=== PATIENT | male | born 1955 | race Caucasian/White ===

== ENCOUNTER → 2019-06-30 08:26 | Outpatient (CLI) | payer BC, SELFPAY ==
[2019-06-30 09:40] LABS: Alanine Aminotransferase 31 IU/L (21-72); Albumin 4.4 g/dL (3.5-5.0); Albumin Globulin Ratio 1.6 (1.0-2.8); Alkaline Phosphatase 90 U/L (38-126); Aspartate Aminotransferase 31 IU/L (17-59); BUN Creatinine Ratio 17.8 (6-22); Bilirubin Total 0.7 mg/dL (0.2-1.3); Blood Urea Nitrogen 16 mg/dL (9-20); Calcium 9.2 mg/dL (8.4-10.2); Carbon Dioxide 24 mmol/L (22-32); Chloride 104 mmol/L (98-107); Cholesterol 167 mg/dL (140-199); Estimated Glomerular Filt Rate > 60.0 mL/min (>60); Globulin 2.8 g/dL (1.7-4.1); Glucose 95 mg/dL (80-110); HDL Cholesterol 46 mg/dL (40-60); HEMOLYSIS < 15 (0-50); LDL Cholesterol Calculated 96 mg/dL (<100); Potassium 4.7 mmol/L (3.4-5.1); Sodium 137 mmol/L (137-145); Total Protein 7.2 g/dL (6.3-8.2); Triglycerides 125 mg/dL (35-150)
[2019-06-30 10:10] LABS: Prostate Specific Antigen Scrn 0.519 ng/mL (0.1-4.0); Vitamin D 25 Hydroxy (D3) 40.6 ng/mL (30.0-100.0)
[2019-07-04 14:25] LABS: Varicella IgG Antibody < 135.00 Index (< 135.00)
== END ==
PROVIDERS: Visit Provider Student in an Organized Health Care Education/Training Program
DX: E55.9 Vitamin D deficiency, unspecified (principal); I25.10 Atherosclerotic heart disease of native coronary artery without angina pectoris; I10 Essential (primary) hypertension; Z12.5 Encounter for screening for malignant neoplasm of prostate; Z71.1 Person with feared health complaint in whom no diagnosis is made; Z79.899 Other long term (current) drug therapy
CPT/HCPCS: 36415; 80053; 80061; 82306; 86787; G0103

== ENCOUNTER → 2019-07-13 09:01 | Outpatient (CLI) | payer BC, SELFPAY ==
[2019-07-13 10:26] LABS: B Type Natriuretic Peptide 163 (<100)
== END ==
PROVIDERS: PCP Student in an Organized Health Care Education/Training Program; Visit Provider Internal Medicine Cardiovascular Disease
DX: R06.02 Shortness of breath (principal)
CPT/HCPCS: 36415; 83880

== ENCOUNTER → 2019-08-09 15:48 | Outpatient (CLI) | payer BC, SELFPAY ==
--- NOTE | 2019-08-09 | DI.ECHO.S_ITS ---
[facility]---------+ [facility] +---------+ : : [address] : : : : [id number] : : : : Phone: [phone]+ Echocardiogram Report + + :Name: ELIAN DIAZ Study Date: 08/09/2019 Height: 70 in : :[facility] Exam Location: [facility] Weight: 225 lb : : Gender: Male BSA: 2.2 m2 : :: 1955 Age: 64 yrs BP: 112/65 mmHg: :Reason For Study: SOB : : Performed By: Jose Sung : :Referring: DISHA GAMBLE : + + Interpretation Summary The left ventricle is normal in size. The ejection fraction is estimated to be 60-65%. The right ventricle is normal in size and function. Heavy posterior mitral annulus calcification. Mild anterior mitral annulus calcification. No significant mitral stenosis. There is mild to moderate mitral regurgitation. There is mild aortic regurgitation. The ascending aorta is mild-moderately enlarged (4.1 cm in diameter). There is aortic root sclerosis/calcification. The IVC is of normal diameter and collapses greater than 50% with a sniff. This suggests a low right atrial pressure of 3 mm Hg. Procedure: A two-dimensional transthoracic echocardiogram with color flow and Doppler was performed. The study quality was technically adequate. There is no prior echocardiogram noted for this patient. The patient was in normal sinus rhythm during the exam. The patient had occasional PVCs during the exam. The patient had a bundle branch block rhythm during the exam. Left Ventricle: The left ventricle is normal in size. There is normal left ventricular wall thickness. There is no thrombus. The ejection fraction is estimated to be 60-65%. There are no focal wall motion abnormalities. MV E/A: 0.94 Med Peak E' Jhon: 4.9 cm/sec E/E' med: 23.6. Right Ventricle: The right ventricle is normal in size and function. Atria: The left atrium is moderately dilated. Right atrial size is normal. A prominent eustachian valve is noted. The interatrial septum is intact with no evidence for an atrial septal defect. Mitral Valve: Heavy posterior mitral annulus calcification. Mild anterior mitral annulus calcification. No significant mitral stenosis. There is mild to moderate mitral regurgitation. Aortic Valve: The aortic valve is trileaflet. The aortic valve is mildly calcified. There is no aortic valve stenosis. There is mild aortic regurgitation. Tricuspid Valve: The tricuspid valve is normal. Pulmonary artery pressures cannot be estimated because of the lack of a measurable TR jet velocity. There is trace tricuspid regurgitation. Pulmonic Valve: The pulmonic valve is normal in structure and function. There is trace pulmonic regurgitation. Great Vessels: The aortic root is normal size. There is aortic root sclerosis/calcification. The ascending aorta is mild-moderately enlarged. The aortic arch is mildly enlarged. The pulmonary artery is normal size. The IVC is of normal diameter and collapses greater than 50% with a sniff. This suggests a low right atrial pressure of 3 mm Hg. Pericardium/ Pleura There is no pericardial effusion. There is no pleural effusion. MMode/2D Measurements & Calculations LVIDd: 5.7 cm LVOT diam: 2.5 cm LVIDs: 3.1 cm Ao root diam: 4.1 cm FS: 46.2 % Aortic Jxn: 3.6 cm EPSS: 0.39 cm asc Aorta Diam: 4.1 cm IVSd: 1.1 cm Ao Arch Diam (Prox Trans): 3.4 cm LVPWd: 0.97 cm LV rodriguez. diameter/BSA (cm/m^2): 2.6 LV sys. diameter/BSA (cm/m^2): 1.4 LA dimension: 4.5 cm RA long axis: 5.8 cm LA A2 area: 27.9 cm2 RA area: 19.5 cm2 LA A4 area: 27.5 cm2 RA vol: 55.8 ml LA length (vol): 6.4 cm RA : 25.4 ml/m2 LA vol: 102.4 ml IVC diam: 1.6 cm LA vol index: 46.7 ml/m2 Doppler Measurements & Calculations Ao V2 max: 145.3 cm/sec LVOT Max Jhon: 130.7 cm/sec Ao V2 mean: 112.8 cm/sec LV V1 max P.8 mmHg Ao max P.4 mmHg LV V1 VTI: 34.0 cm Ao mean P.2 mmHg PAZ(I,D): 4.7 cm2 Ao V2 VTI: 35.0 cm PAZ(V,D): 4.4 cm2 sev ratio: 0.97 PAZ indexed to BSA (cm^2/m^2): 2.1 AI P1/2t: 939.8 msec AI dec slope: 130.9 cm/sec2 MV E max jhon: 114.5 cm/sec PA V2 max: 71.3 cm/sec MV A max jhon: 122.0 cm/sec PA V2 mean: 54.1 cm/sec MV E/A: 0.94 PA mean P.2 mmHg Med Peak E' Jhon: 4.9 cm/sec PA pr(Accel): 14.1 mmHg E/E' med: 23.6 PA Accel Time: 0.14 sec Lat Peak E' Jhon: 6.4 cm/sec E/E' lat: 17.9 E/e' average: 20.7 MV dec time: 0.30 sec SV(LVOT): 164.8 ml Reading Physician:05:30 PM
== END ==
PROVIDERS: PCP Student in an Organized Health Care Education/Training Program; Visit Provider Internal Medicine Cardiovascular Disease
DX: I08.0 Rheumatic disorders of both mitral and aortic valves (principal); R06.02 Shortness of breath; I25.118 Atherosclerotic heart disease of native coronary artery with other forms of angina pectoris; I77.89 Other specified disorders of arteries and arterioles
CPT/HCPCS: 93306

== ENCOUNTER → 2019-08-21 08:15 | Outpatient (CLI) | payer BC, SELFPAY ==
--- NOTE | 2019-08-21 | DI.NM.S_ITS ---
PROCEDURE: NM TOMY PERF SPECT R&S PHARM Rest and pharmacological stress myocardial perfusion SPECT with gated imaging and ejection fraction RADIOPHARMACEUTICAL: 24.2 mCi Tc-99m tetrafosmin IV at rest and 26.7 mCi Tc-99m tetrafosmin IV at peak effect of pharmacological stress. [id number] was performed. INDICATIONS: Shortness of breath TECHNIQUE: Radiopharmaceutical was injected at peak stress test, and also at rest. SPECT images were obtained. SPECT myocardial perfusion images were displayed in short axis, horizontal long axis, and vertical long axis views. Gated images were reviewed using Deepclass software. COMPARISON: None. CARDIAC STRESS: A pharmacologic stress test was performed under the supervision of an attending staff, using an infusion of Lexiscan . Hemodynamic data: There is normal blood pressure and heart rate response to pharmacologic stress. Symptoms: The patient denied anginal chest pain. Aminophylline: Not given. EKG: LBBB at baseline. No diagnostic changes of ischemia; no ectopy. FINDINGS: Raw data: There is good myocardial uptake of radiotracer. No significant motion artifacts. Ytzk-mq-[id number] ratio is 0.4 (normal is less than 0.38 for tetrafosmin tracer). Left ventricle function: Gated images demonstrate normal left ventricular wall thickening. No segmental wall motion abnormalities. No transient ischemic dilation; TID is 1.41 (normal less than 1.3). Left ventricle resting end diastolic volume is 105 mL. Left ventricle stress ejection fraction is 77% ; normal range is above 45%. Myocardial perfusion: There is a small, mild, fixed inferoapical defect on rest, stress supine and stress prone imaging, consistent with a small prior infarct. There is a moderate-size, mild defect of the apical septal, mid anterseptal and mid inferoseptal on rest and supine stress which completely resolves on prone imaging. Otherwise normal distribution of activity in the left ventricular myocardium. No other fixed or reversible perfusion defects. IMPRESSION: -Small, fixed inferoapical defect, consistent with prior infarct. -No evidence of ischemia. -The septal defects completely resolve on prone imaging, consistent with artifact. -Slightly elevated TID without visual evidence of transient dilatation could be related to dyssynchrony with left bundle branch block. Clinical correlation is recommended. -Overall this is a low risk study. Dictated by: Cristian Carty M.D. on 08/22/2019 at 16:50 Approved by: Cristian Carty M.D. on 08/22/2019 at 17:01
--- NOTE | 2019-08-21 09:17 | PM.TREADMILL ---
Cardiac Stress Test Report Referral & Results Date Patient Seen: 08/21/19 Requesting provider: Alison Kim Indication: Left bundle branch block, coronary artery disease Rest ECG: Left bundle branch block Procedure Note: After both written and verbal informed consent the patient had an IV started by the diagnostic imaging RN, and then was hooked up to the treadmill monitoring system. The Lexiscan material, and then the Cardiolite tracer, were administered sequentially. An additional 3 min was spent monitoring the patient while supine on the gurney. The patient had a normal response to all infused materials. Impression: Normal response as above. Please see perfusion imaging report for details regarding possible ischemia Please note: Actual ECG tracings can be found in the PACS system.
== END ==
PROVIDERS: PCP Student in an Organized Health Care Education/Training Program; Visit Provider Internal Medicine Cardiovascular Disease
DX: I25.118 Atherosclerotic heart disease of native coronary artery with other forms of angina pectoris (principal); I44.7 Left bundle-branch block, unspecified; R06.02 Shortness of breath
CPT/HCPCS: 78452; 93016; 93017; 93018; A9502; J2785

== ENCOUNTER → 2020-04-16 08:08 | Outpatient (CLI) | payer BC, SELFPAY ==
[2020-04-16 12:57] LABS: Cholesterol 173 mg/dL (140-199); HDL Cholesterol 51 mg/dL (40-60); LDL Cholesterol Calculated 88 mg/dL (<100); Triglycerides 171 mg/dL (35-150)
== END ==
PROVIDERS: PCP Student in an Organized Health Care Education/Training Program; Referring Provider Internal Medicine Cardiovascular Disease; Visit Provider Internal Medicine Cardiovascular Disease
DX: E78.5 Hyperlipidemia, unspecified (principal)
CPT/HCPCS: 36415; 80061

== ENCOUNTER → 2020-05-07 10:05 | Outpatient (CLI) | payer BC, SELFPAY ==
[2020-05-08 14:20] LABS: COVID19 Sendout Not Detected (Not Detect)
== END ==
PROVIDERS: PCP Student in an Organized Health Care Education/Training Program; Visit Provider Registered Nurse
DX: Z01.812 Encounter for preprocedural laboratory examination (principal)
CPT/HCPCS: 87635

== ENCOUNTER → 2020-05-10 08:49 | Outpatient (CLI) | payer BC, SELFPAY ==
--- NOTE | 2020-05-15 09:44 | PM.PFT.1 ---
Pulmonary Function Test Referral & Results Date Patient Seen: 05/10/20 Requesting provider: Alison Kim Results: The spirometry demonstrates an FVC of 4.33 L which is 93% of predicted. The FEV1 was measured at 2.84 L which is 81% of predicted. The FEV1/FVC ratio was 65 which is 87% of predicted. Following the administration of bronchodilator there was a 19% improvement in FEV1 and a 95% improvement in FEF 25-75%. Lung volumes show an SVC of 4.44 L which is 94% of predicted. The diffusing capacity was measured at 24.56 which is 75% of predicted. The maximum voluntary ventilation was normal Interpretation: This study demonstrates perhaps very mild obstructive lung disease based on slight reduction in FEV1 and shape a flow volume loop. There is also evidence of benefit following bronchodilator based on improvement in FEV1 and more importantly improvement in FEF 25-75% which suggest small airway flow was improved Lung volumes appear to be normal Diffusing capacity is minimally reduced unless patient is anemic
== END ==
PROVIDERS: PCP Student in an Organized Health Care Education/Training Program; Referring Provider Internal Medicine Cardiovascular Disease; Visit Provider Internal Medicine Cardiovascular Disease
DX: R06.02 Shortness of breath (principal); J98.8 Other specified respiratory disorders
CPT/HCPCS: 94060; 94726; 94729

== ENCOUNTER → 2020-07-11 08:50 | Outpatient (CLI) | payer BC, SELFPAY ==
[2020-07-11 10:30] LABS: Alanine Aminotransferase 20 IU/L (<50); Albumin Globulin Ratio 1.6 (1.0-2.8); Alkaline Phosphatase 94 U/L (38-126); Aspartate Aminotransferase 29 IU/L (17-59); Bilirubin Total 0.6 mg/dL (0.2-1.3); Bilirubin Unconjugated 0.5 mg/dL (0.0-1.1); Cholesterol 112 mg/dL (140-199); Globulin 2.5 g/dL (1.7-4.1); HDL Cholesterol 66 mg/dL (40-60); HEMOLYSIS < 15 (0-50); LDL Cholesterol Calculated 32 mg/dL (<100); Total Protein 6.5 g/dL (6.3-8.2); Triglycerides 69 mg/dL (35-150)
== END ==
PROVIDERS: PCP Student in an Organized Health Care Education/Training Program; Referring Provider Nurse Practitioner; Visit Provider Nurse Practitioner
DX: I25.118 Atherosclerotic heart disease of native coronary artery with other forms of angina pectoris (principal); I10 Essential (primary) hypertension; E78.5 Hyperlipidemia, unspecified; I44.7 Left bundle-branch block, unspecified
CPT/HCPCS: 36415; 80061; 80076

== ENCOUNTER 2020-11-10 19:43 | Observation (INO) | payer BC, SELFPAY ==
[2020-11-10] VITALS (20 sets, daily range): BP systolic 109–167; BP diastolic 69–97; PULSE 74–150; RESP 20–41; TEMP 36.6–36.7; O2SAT 83–96; BMI 32.3; BMI 32.2
--- NOTE | 2020-11-10 19:45 | DI.RAD.S_ITS ---
PROCEDURE: XR CHEST 1V INDICATIONS: chest pain TECHNIQUE: One view of the chest was acquired. COMPARISON: None. FINDINGS: Surgical changes and devices: None. Lungs and pleura: There is mild pulmonary vascular congestion. Increased interstitial reticular markings are noted. No focal infiltrate. No pleural effusions or pneumothorax. Mediastinum: Mediastinal contours appear normal. Heart size is enlarged. Bones and chest wall: No suspicious bony lesions. Overlying soft tissues appear unremarkable. IMPRESSION: Cardiomegaly and mild congestion. Increased interstitial reticular markings may represent pulmonary edema versus chronic lung parenchymal disease. No focal infiltrate. No pleural effusion or pneumothorax. Dictated by: Billy Salvador M.D. on 11/10/2020 at 21:02 Approved by: Billy Salvador M.D. on 11/10/2020 at 21:03
[2020-11-10] MEDS: SODIUM CHLORIDE 0.9% 500 ML 1000 ML IV (19:55)
[2020-11-10 19:59] LABS: Add Manual Diff / Slide Review NO; Basophils Absolute Auto 100 /uL (0-100); Basophils Percent Auto 1.1 % (0-2); Eosinophils Absolute Auto 700 /uL (0-450); Eosinophils Percent Auto 7.3 % (2-4); Hematocrit 46.4 % (41-53); Hemoglobin 16.2 g/dL (13.5-17.5); Lymphocytes Absolute Auto 2900 /uL (1100-4500); Lymphocytes Percent Auto 31.6 % (25-40); Mean Corpuscular HGB Conc 34.8 % (30-36); Mean Corpuscular Hemoglobin 34.9 PG (26-34); Mean Corpuscular Volume 100.3 fL (80-100); Monocytes Absolute Auto 800 /uL (0-900); Monocytes Percent Auto 8.4 % (3-14); Neutrophils Absolute Auto 4700 /uL (1500-7000); Neutrophils Percent Auto 51.6 % (50-75); Platelet Count 241 X10^3/uL (150-400); Red Blood Cell Count 4.62 X10^6/uL (4.5-5.9); Red Cell Distribution Width 12.9 % (11.6-14.8); White Blood Cell Count 9.1 X10^3/uL (4.5-11.0)
[2020-11-10 20:05] LABS: INR 0.9 (0.9-1.3); Prothrombin Time 10.3 SECONDS (10.1-12.7)
[2020-11-10] MEDS: propofoL 200 MG/20 ML VIAL 100 MG IV (20:06)
[2020-11-10 20:07] LABS: PTT Partial Thromboplastin Tim 31 SECONDS (26.4-36.2)
[2020-11-10 20:09] LABS: Alanine Aminotransferase 43 IU/L (<50); Albumin 4.7 g/dL (3.5-5.0); Albumin Globulin Ratio 1.4 (1.0-2.8); Alkaline Phosphatase 122 U/L (38-126); Aspartate Aminotransferase 41 IU/L (17-59); BUN Creatinine Ratio 12.1 (6-22); Bilirubin Total 0.5 mg/dL (0.2-1.3); Blood Urea Nitrogen 18 mg/dL (9-20); Calcium 9.9 mg/dL (8.4-10.2); Carbon Dioxide 25 mmol/L (22-32); Chloride 101 mmol/L (98-107); Creatine Kinase 67 U/L (55-170); Estimated Glomerular Filt Rate 47.5 mL/min (>60); Globulin 3.3 g/dL (1.7-4.1); Glucose 152 mg/dL (80-110); HEMOLYSIS < 15 (0-50); Lipase 129 U/L (23-300); Potassium 3.8 mmol/L (3.4-5.1); Sodium 136 mmol/L (137-145)
--- NOTE | 2020-11-10 20:10 | ED.CHESTPAIN ---
HPI - Chest Pain General Chief Complaint: Chest Pain Stated Complaint: tightness in chest, SOB, elevated HR Time Seen by Provider: 11/10/20 19:45 Source: patient and family Mode of arrival: Ambulatory Limitations: no limitations History of Present Illness HPI narrative: 65-year-old male former smoker with history of coronary artery disease and AFib (no anticoagulation) presents with a chief complaint of a sudden onset anterior chest pressure and shortness of breath that started about 2 hours prior to arrival. Additionally, he complains of a rapid and irregular heart rhythm and states he feels like prior episodes of atrial fibrillation. His pressure is heavy, squeezing and in his anterior chest. He denies provocation, palliation or radiation of his pain. He tried taking some nitro at home which did not help. Additionally he is significantly short of breath with even minimal exertion, this started with his chest pain. He had an NSTEMI with subsequent catheterization and stent a few years ago. He was taken off his clopidogrel relatively recently as he was thought to be far enough removed from his intervention to no longer needed. Additionally, he has been in contact with his primary applications trainer (Judy) to discuss increasing shortness of breath with exertion and the presence of a murmur. Apparently he is being scheduled for an outpatient echocardiogram. MD complaint: chest pain Onset (ago): hour(s) Duration: constant Onset: during rest Pain location: substernal Severity: moderate Quality: tightness, aching and heaviness Pain radiation: none Relieving factors: nothing Exacerbating factors: nothing Associated symptoms: dyspnea Treatments prior to arrival chest pain: nitroglycerin Related Data Home Medications Medication Instructions Recorded Confirmed aspirin 81 mg tablet,delayed 81 mg PO DAILY 06/21/19 11/10/20 release atorvastatin 80 mg tablet 80 mg PO BEDTIME 06/21/19 11/10/20 clopidogrel 75 mg tablet 75 mg PO DAILY 06/21/19 06/21/19 ezetimibe 10 mg tablet 10 mg PO DAILY 06/21/19 06/21/19 irbesartan 300 mg tablet 300 mg PO DAILY 06/21/19 11/10/20 metoprolol tartrate 50 mg tablet 50 mg PO BID 06/21/19 11/10/20 pantoprazole 40 mg tablet,delayed 40 mg PO DAILY PRN 06/21/19 06/21/19 release isosorbide mononitrate 30 mg PO DAILY 11/10/20 11/10/20 Allergies Allergy/AdvReac Type Severity Reaction Status Date / Time No Known Drug Allergies Allergy Verified 06/21/19 14:35 Review of Systems Constitutional Constitutional: Denies chills, Denies fatigue, Denies fever(s), Denies frequent falls, Denies lethargy and Denies weakness Eyes Eyes: Denies change in vision, Denies eye discharge, Denies irritation and Denies loss of vision ENT Ears, Nose, Mouth, and Throat: Denies change in voice, Denies dizziness, Denies neck pain, Denies sore throat and Denies throat swelling Cardiovascular Cardiovascular: Reports chest pain, Reports irregular heart rhythm, Denies lightheadedness, Reports palpitations, Reports dyspnea, Reports dyspnea on exertion and Denies orthopnea Respiratory Respiratory: Denies cough, Reports dyspnea, Reports dyspnea on exertion and Denies wheezing Gastrointestinal Gastrointestinal: Denies abdominal pain, Denies change in bowel habits, Denies diarrhea, Denies nausea and Denies vomiting Musculoskeletal Musculoskeletal: Denies neck pain and Denies numbness Integumentary/Breasts Skin/Breast: Denies pruritus, Denies erythema, Denies rash and Denies wounds Neurologic Neurologic: Denies behavioral changes, Denies confusion, Denies dizziness, Denies frequent falls, Denies loss of vision, Denies numbness and Denies weakness Psychiatric Psychiatric: Denies anxiety, Denies behavioral changes, Denies confusion, Denies depression, Denies homicidal ideation and Denies suicidal ideation Endocrine Endocrine: Denies fatigue, Denies flushing and Reports palpitations Hematologic/Lymphatic Hematologic/Lymphatic: Denies easy bruising Allergic/Immunologic Allergic/Immunologic: Denies urticaria, Denies throat swelling and Denies wheezing Patient History Medical History Atrial fibrillation (~01/2018) Chronic back pain (~2014) Gonorrhea (~2011) Measles Surgical History Anesthesia History of angioplasty (~01/2018) History of hip replacement (~2016) Family History Father Dementia Social History household members: spouse Smoking Status: Former smoker alcohol intake: current Smoking Status: Former smoker Exam Narrative Exam Narrative: GENERAL: [65] year old patient appears stated age. Obviously significantly ill, clutching his chest and visibly short of breath. HEAD: Atraumatic. Normocephalic. EYES: Pupils equal round and reactive. Extraocular motions intact. No scleral icterus. No injection or drainage. ENT: Nose without bleeding, purulent drainage. Throat without erythema, tonsillar hypertrophy or exudate. Airway patent. NECK: Trachea midline. Non tender CARDIOVASCULAR: Tachycardic and irregular RESPIRATORY: Rapid shallow breathing with bibasilar crackles GASTROINTESTINAL: Abdomen soft, non-tender, nondistended. EXTREMITIES: No edema or joint tenderness. BACK: Nontender without deformity or crepitance. No flank tenderness. NEURO: AOx3. SKIN: No rash or erythema of visible areas Initial Vital Signs Initial Vital Signs: Vital Signs Temperature 98.0 F 11/10/20 19:50 Pulse Rate 145 H 11/10/20 19:50 Respiratory Rate 31 H 11/10/20 19:50 Blood Pressure 145/87 H 11/10/20 19:50 Pulse Oximetry 90 L 11/10/20 19:50 Procedures Cardioversion Consent Signed: Yes Indication: Unstable rapid Afib Stability: Unstable Number of attempts (shocks): 1 Joules used: 150 Cardiac rhythm post-cardioversion: NSR Procedural Sedation Consent signed: Yes Time out performed: Yes Indication: cardioversion ASA Class: III Mallampati Airway Classification: Class III Preparation: cafeteria monitor applied, pulse oximeter, capnometry used, supplemental O2 applied, suction/airway equipment at bedside and IV secured IV Propofol dose (mg): 100 Intraservice time/total sedation time (min): 10 ED Sedation Level: Moderate (Concious) Patient Tolerated Procedure: Well Complications: Respiratory Depression-Repositioning Required Interventions: Airway repositioned and Oxygen applied Course Course Course Narrative: Early cardioversion due to unstable nature of the patient's presentation given his chest pain and significant shortness of breath. Furthermore, symptoms have only been present for 2 hours making him appropriate and safe for cardioversion Orders Ordered: ED Orders 11/10/20 19:45 XR chest 1V Stat EKG-12 Lead Stat 11/10/20 19:51 Complete Blood Count AUTO DIFF Stat Comprehensive Metabolic Panel Stat Lipase Stat Partial Thromboplastin Time Stat Prothrombin Time INR Stat Troponin & CK Cardiac Panel Stat 11/10/20 20:58 EKG-12 Lead Routine Acetaminophen (Acetaminophen 325 Mg Tablet) 650 mg PO Q6HR PRN PRN Reason: Fever/Mild Pain (1-3) Aspirin (Aspirin Ec 81 Mg Tablet) 81 mg PO DAILY VENITA Atorvastatin Calcium (Atorvastatin 20 Mg Tablet) 80 mg PO BEDTIME VENITA Docusate Sodium (Docusate 100 Mg Capsule) 100 mg PO BID PRN PRN Reason: constipation Irbesartan (Irbesartan 150 Mg Tablet) 300 mg PO DAILY VENITA Isosorbide Mononitrate (Isosorbide Mononitrate Er 30 Mg Tablet) 30 mg PO DAILY VENITA Metoprolol Tartrate (Metoprolol Ir 50 Mg Tablet) 50 mg PO BID VENITA Naloxone HCl (Naloxone 0.4 Mg/Ml Vial) 0.2 mg IV Q2MIN PRN PRN Reason: Opiate Reversal Ondansetron HCl (Ondansetron 4 Mg Odt) 4 mg PO Q8HR PRN PRN Reason: Nausea And Vomiting Sennosides (Sennosides 8.6 Mg Tablet) 17.2 mg PO BEDTIME PRN PRN Reason: constipation Discontinued Medications Apixaban (Apixaban 5 Mg Tablet) 5 mg PO NOW ONE Stop: 11/10/20 21:48 Last Admin: 11/10/20 22:45 Dose: 5 mg Documented by: TAMEKA Sodium Chloride (Normal Saline 0.9%) 500 mls @ 1,000 mls/hr IV BOLUS ONE Stop: 11/10/20 21:02 Last Infusion: 11/10/20 20:43 Dose: 0 mls/hr Documented by: Admin: 11/10/20 19:55 Dose: 1,000 mls/hr Documented by: JESSI Propofol (Propofol 200 Mg/20 Ml Vial) 100 mg IV NOW ONE Stop: 11/10/20 20:09 Last Admin: 11/10/20 20:06 Dose: 100 mg Documented by: JESSI Reevaluation(s) Reevaluation #1: complete resolution of symptoms after cardioversion Consultations Consultation #1: call to Dr. Mancini (Cardio) to discuss case given recent visit to Dr. Kim and request for outpatient echo. He requests anticoagulation, admission for monitoring and echo. Change Metoprolol Succinate 50mg PO BID to tartrate for longer effect. Will relay note to Dr. Kim for in house consultation tomorrow Consultation #2: hospitalist happy to accept. Vital Signs Vital signs: Vital Signs - 8 hr 11/10/20 19:50 11/10/20 19:59 11/10/20 20:00 Temperature 98.0 F Pulse Rate 145 H 148 H 148 H Respiratory Rate 31 H 41 H 37 H Blood Pressure 145/87 H Pulse Oximetry 90 L 95 96 11/10/20 20:01 11/10/20 20:06 11/10/20 20:10 Temperature Pulse Rate 150 H 83 80 Respiratory Rate 33 H 30 H 36 H Blood Pressure 167/90 H 132/73 109/69 Pulse Oximetry 96 83 L 94 11/10/20 20:15 11/10/20 20:20 11/10/20 20:25 Temperature Pulse Rate 80 79 77 Respiratory Rate 27 H 31 H 26 H Blood Pressure 131/79 146/80 H 134/83 Pulse Oximetry 94 94 93 11/10/20 20:30 11/10/20 20:34 11/10/20 20:35 Temperature Pulse Rate 77 78 77 Respiratory Rate 37 H 37 H 33 H Blood Pressure 129/83 130/82 Pulse Oximetry 96 95 95 11/10/20 20:40 11/10/20 20:45 11/10/20 21:00 Temperature Pulse Rate 79 78 83 Respiratory Rate 30 H 28 H 21 Blood Pressure 138/87 130/75 136/84 Pulse Oximetry 95 96 95 11/10/20 21:30 11/10/20 22:00 Temperature Pulse Rate 74 74 Respiratory Rate 20 Blood Pressure 134/82 137/85 Pulse Oximetry 96 96 MDM - Chest Pain Lab Data Result diagrams: 11/10/20 19:51 11/10/20 19:51 Labs: Lab Results 11/10/20 11/10/20 11/10/20 Range/Units 19:51 19:51 19:51 WBC 9.1 (4.5-11.0) X10^3/uL RBC 4.62 (4.5-5.9) X10^6/uL Hgb 16.2 (13.5-17.5) g/dL Hct 46.4 (41-53) % MCV 100.3 H (80-100) fL MCH 34.9 H (26-34) PG MCHC 34.8 (30-36) % RDW 12.9 (11.6-14.8) % Plt Count 241 (150-400) X10^3/uL Neut % (Auto) 51.6 (50-75) % Lymph % (Auto) 31.6 (25-40) % [place] % (Auto) 8.4 (3-14) % Eos % (Auto) 7.3 H (2-4) % Baso % (Auto) 1.1 (0-2) % Neut # (Auto) 4700 (6711-7240) /uL Lymph # (Auto) 2900 (2624-8695) /uL [place] # (Auto) 800 (0-900) /uL Eos # (Auto) 700 H (0-450) /uL Baso # (Auto) 100 (0-100) /uL PT 10.3 (10.1-12.7) SECONDS INR 0.9 (0.9-1.3) APTT 31 (26.4-36.2) SECONDS Sodium 136 L (137-145) mmol/L Potassium 3.8 (3.4-5.1) mmol/L Chloride 101 (98-107) mmol/L Carbon Dioxide 25 (22-32) mmol/L BUN 18 (9-20) mg/dL Creatinine 1.49 H (0.66-1.25) mg/dL Estimated GFR 47.5 L (>60) mL/min BUN/Creatinine Ratio 12.1 (6-22) Glucose 152 H (80-110) mg/dL Calcium 9.9 (8.4-10.2) mg/dL Total Bilirubin 0.5 (0.2-1.3) mg/dL AST 41 (17-59) IU/L ALT 43 (<50) IU/L Alkaline Phosphatase 122 (38-126) U/L Total Creatine Kinase 67 (55-170) U/L CK-MB (CK-2) TNP CK-MB (CK-2) Rel Index TNP Troponin I < 0.012 (0.01-0.034) ng/mL NT-Pro-B Natriuret Pep (<125) pg/mL Total Protein 8.0 (6.3-8.2) g/dL Albumin 4.7 (3.5-5.0) g/dL Globulin 3.3 (1.7-4.1) g/dL Albumin/Globulin Ratio 1.4 (1.0-2.8) Lipase 129 (23-300) U/L 12/20/20 Range/Units 19:51 WBC (4.5-11.0) X10^3/uL RBC (4.5-5.9) X10^6/uL Hgb (13.5-17.5) g/dL Hct (41-53) % MCV (80-100) fL MCH (26-34) PG MCHC (30-36) % RDW (11.6-14.8) % Plt Count (150-400) X10^3/uL Neut % (Auto) (50-75) % Lymph % (Auto) (25-40) % [place] % (Auto) (3-14) % Eos % (Auto) (2-4) % Baso % (Auto) (0-2) % Neut # (Auto) (9382-6989) /uL Lymph # (Auto) (5117-9155) /uL [place] # (Auto) (0-900) /uL Eos # (Auto) (0-450) /uL Baso # (Auto) (0-100) /uL PT (10.1-12.7) SECONDS INR (0.9-1.3) APTT (26.4-36.2) SECONDS Sodium (137-145) mmol/L Potassium (3.4-5.1) mmol/L Chloride (98-107) mmol/L Carbon Dioxide (22-32) mmol/L BUN (9-20) mg/dL Creatinine (0.66-1.25) mg/dL Estimated GFR (>60) mL/min BUN/Creatinine Ratio (6-22) Glucose (80-110) mg/dL Calcium (8.4-10.2) mg/dL Total Bilirubin (0.2-1.3) mg/dL AST (17-59) IU/L ALT (<50) IU/L Alkaline Phosphatase (38-126) U/L Total Creatine Kinase (55-170) U/L CK-MB (CK-2) CK-MB (CK-2) Rel Index Troponin I (0.01-0.034) ng/mL NT-Pro-B Natriuret Pep 212 H (<125) pg/mL Total Protein (6.3-8.2) g/dL Albumin (3.5-5.0) g/dL Globulin (1.7-4.1) g/dL Albumin/Globulin Ratio (1.0-2.8) Lipase (23-300) U/L Discharge Plan Departure Patient Disposition: Admitted as Observation Clinical Impression: Atrial fibrillation Qualifiers: Atrial fibrillation type: paroxysmal Qualified Code(s): I48.0 - Paroxysmal atrial fibrillation Chest pain Qualifiers: Chest pain type: other chest pain Qualified Code(s): R07.89 - Other chest pain Admit Date/Time: 11/10/20 22:15 Admit Provider: Alexandra Cedeño
[2020-11-10 20:21] LABS: Troponin I < 0.012 ng/mL (0.01-0.034)
[2020-11-10] MEDS: APIXABAN 5 MG TABLET PO (22:45)
[2020-11-10 22:49] LABS: COVID19 -Nasal RAPID Negative (Negative)
--- NOTE | 2020-11-11 00:01 | DI.ECHO.S_ITS ---
[facility] +---------+ : : [address] : : : : [id number] : : : : Phone: [phone]+ Echocardiogram Report + + :Name: ELIAN DIAZ Study Date: 11/11/2020 Height: 70 in : :[facility] Weight: 225 lb : : Gender: Male BSA: 2.2 m2 : :: 1955 Age: 65 yrs BP: 132/82 mmHg: :Reason For Study: ATRIAL FIBRILLATION : :Ordering Physician: : :MARCIA WORLEY MECHANICAL ENGINEER-BC Performed By: Eda Gimenez : :Referring: MARCIA WORLEY : + + Interpretation Summary The patient was in sinus rhythm with heart rates between 67-77 bpm during the exam. The left ventricle is normal in size. Left ventricular wall thickness is mild-moderately increased. The ejection fraction is estimated to be 60-65%. There has been no significant change in LVEF since the previous exam. The right ventricle is normal in size and function. There is reduced mobility of the posterior mitral valve leaflet with severe MAC of posterior mitral annulus. Mild calcification of anterior mitral annulus. No significant mitral stenosis. Mild mitral stenosis. There is mild to moderate mitral regurgitation. Compared to the prior echo study, there has been no change in the severity of mitral regurgitation. There is mild aortic regurgitation. Compared to the prior echo study, there has been no change in the severity of aortic regurgitation. The aortic root is mildly dilated. There is aortic root sclerosis/calcification. The ascending aorta is moderately enlarged. 4.7 cm in diameter. In the previous study, it was 4.1 cm. The aortic arch is mildly enlarged. Mild atherosclerotic plaque(s) in the aortic arch. Procedure: A two-dimensional transthoracic echocardiogram with color flow and Doppler was performed. The study quality was technically adequate. Comparison is made with the echocardiogram of 08/09/2019. The patient was in sinus rhythm with heart rates between 67-77 bpm during the exam. Left Ventricle: The left ventricle is normal in size. Left ventricular wall thickness is mild-moderately increased. A false chord is noted (normal variant). The ejection fraction is estimated to be 60-65%. There has been no significant change since the previous exam. There are no focal wall motion abnormalities. MV E/A: 0.94 Med Peak E' Jhon: 7.7 cm/sec E/E' med: 18.8. Right Ventricle: The right ventricle is normal in size and function. Atria: The left atrium is severely dilated. The left atrium has mildly increased in size since the prior echo exam. Right atrial size is normal. A prominent eustachian valve is noted. There is no Doppler evidence for an interatrial shunt. Mitral Valve: There is reduced mobility of the posterior mitral valve leaflet with severe MAC of posterior mitral annulus. Mild calcification of anterior mitral annulus. No significant mitral stenosis. Mild mitral stenosis. There is mild mitral stenosis. The mitral valve mean gradient is 5.6 mmHg. There is mild to moderate mitral regurgitation. Compared to the prior echo study, there has been no change in the severity of mitral regurgitation. Aortic Valve: The aortic valve is mildly calcified. The aortic valve is trileaflet. There is discrete nodular thickening of the non- coronary cusp. There is no aortic valve stenosis. There is mild aortic regurgitation. Compared to the prior echo study, there has been no change in the severity of aortic regurgitation. Tricuspid Valve: The tricuspid valve is normal in structure and function. There is trace tricuspid regurgitation. Pulmonary artery pressures cannot be estimated because of the lack of a measurable TR jet velocity but the IVC suggests a CVP of around 3 mmHg. Pulmonic Valve: The pulmonic valve is not well seen, but is grossly normal. There is no pulmonic valvular regurgitation. Great Vessels: The aortic root is mildly dilated. There is aortic root sclerosis/calcification. The ascending aorta is moderately enlarged. Mild atherosclerotic plaque(s) in the aortic arch. The aortic arch is mildly enlarged. The IVC is of normal diameter and collapses greater than 50% with a sniff. This suggests a low right atrial pressure of 3 mm Hg. Pericardium/ Pleura There is no pericardial effusion. There is no pleural effusion. MMode/2D Measurements & Calculations LVIDd: 4.8 cm LVOT diam: 2.0 cm LVIDs: 3.1 cm Ao root diam: 4.4 cm FS: 36.0 % asc Aorta Diam: 4.7 cm IVSd: 1.5 cm Ao Arch Diam (Prox Trans): 3.6 cm LVPWd: 1.1 cm LV rodriguez. diameter/BSA (cm/m^2): 2.2 LV sys. diameter/BSA (cm/m^2): 1.4 LA A2 area: 30.2 cm2 RA long axis: 5.6 cm LA A4 area: 26.1 cm2 RA area: 17.5 cm2 LA length (vol): 6.3 cm RA vol: 47.0 ml LA vol: 106.8 ml RA : 21.4 ml/m2 LA vol index: 48.7 ml/m2 IVC diam: 1.3 cm RVD1 (basal): 3.3 cm TAPSE: 2.0 cm Doppler Measurements & Calculations Ao V2 max: 154.6 cm/sec LVOT Max Jhon: 149.4 cm/sec Ao V2 mean: 116.5 cm/sec LV V1 max P.9 mmHg Ao max P.6 mmHg LV V1 VTI: 39.3 cm Ao mean P.9 mmHg PAZ(I,D): 3.6 cm2 Ao V2 VTI: 34.6 cm PAZ(V,D): 3.0 cm2 sev ratio: 1.1 PAZ indexed to BSA (cm^2/m^2): 1.6 MV E max jhon: 145.1 cm/sec PA V2 max: 71.2 cm/sec MV A max jhon: 154.8 cm/sec PA V2 mean: 47.7 cm/sec MV E/A: 0.94 PA mean P.0 mmHg Med Peak E' Jhon: 7.7 cm/sec PA pr(Accel): 19.1 mmHg E/E' med: 18.8 Lat Peak E' Jhon: 7.4 cm/sec E/E' lat: 19.6 E/e' average: 19.2 MV dec time: 0.33 sec MVA(VTI): 2.3 cm2 MV V2 mean: 111.7 cm/sec SV(LVOT): 123.2 ml MV mean P.6 mmHg MV V2 VTI: 54.2 cm Reading Physician:10:48 AM
[2020-11-11 00:23] LABS: NT-proBNP (BNP-Adult 18+) 212 pg/mL (<125)
--- NOTE | 2020-11-11 02:58 | PC.NURSE ---
Addendum entered by Kym Casas R.N. 11/11/20 06:52: 0648 Lab calls to report CRITICAL VALUE troponin 0.435. Repeated back. Immediately called Judi Cedeño NP, who gives no new orders at this time. Checked on patient following phone call; he is asymptomatic. Denies chest pain, denies SOB. Coordinator, Andra Lemon, notified. Awaiting further instructions. Addendum entered by Kym Casas R.N. 11/11/20 05:09: 0505 Patient safety check. No complaints of chest pain, and neither through the shift. Telemetry has been showing NSR with a heart rate in the 70s. No s/sx of distress. Original Note: 2335 Patient arrived on unit in stable condition, transferred from ED. He is alert and oriented x4. Denies chest pain. C/O mild wheezing of lungs. Right lower lobe has expiratory wheezing on assessment. No edema seen in extremities. He has a left AC PIV that is saline-locked. He is on room air. No s/sx of distress. Oriented patient to unit, instructed to call using call-light when needing to use restroom or for assistance.
[2020-11-11 05:13] VITALS: BP 120/81; PULSE 68; RESP 17; TEMP 37.1; O2SAT 97
[2020-11-11 05:51] LABS: Alanine Aminotransferase 31 IU/L (<50); Albumin 3.5 g/dL (3.5-5.0); Albumin Globulin Ratio 1.3 (1.0-2.8); Alkaline Phosphatase 75 U/L (38-126); Aspartate Aminotransferase 32 IU/L (17-59); BUN Creatinine Ratio 14.3 (6-22); Bilirubin Total 0.6 mg/dL (0.2-1.3); Blood Urea Nitrogen 16 mg/dL (9-20); Calcium 8.8 mg/dL (8.4-10.2); Carbon Dioxide 26 mmol/L (22-32); Chloride 108 mmol/L (98-107); Estimated Glomerular Filt Rate > 60.0 mL/min (>60); Globulin 2.6 g/dL (1.7-4.1); Glucose 102 mg/dL (80-110); HEMOLYSIS < 15 (0-50); Sodium 135 mmol/L (137-145); Total Protein 6.1 g/dL (6.3-8.2)
--- NOTE | 2020-11-11 05:52 | P.HP_ITS ---
History of Present Illness History of Present Illness Date Patient Seen: 11/10/20 Time Patient Seen: 23:35 Chief complaint: tightness in chest, SOB, elevated HR Narrative: Patient is a 65-year-old male Antelmo Watkins, who presented to the emergency room with a chief complaint of a sudden onset anterior chest pressure and shortness of breath that started about 2 hours prior to arrival. Additionally, he complains of a rapid and irregular heart rhythm and states he feels like prior episodes of atrial fibrillation. Patient is a former smoker times 20 years quit in 1997 has a history of coronary artery disease and AFib (no anticoagulation). Patient reports that this evening at home following dinner he went downstairs and backup in his split-level home and began having chest tightness rotations a distant feel right and I had felt this before so I knew it was ?. He then went downstairs and back up again to retrieve his nitro and tried 1 nitro x1 which did not relieve his chest tightness or shortness of breath. His chest pressure is heavy, squeezing and in his anterior chest. He denies provocation, palliation or radiation of his pain. Additionally he is significantly short of breath with even minimal exertion, this started with his chest pain. He had an NSTEMI with subsequent catheterization and stent a few years ago. He was taken off his clopidogrel relatively recently as he was thought to be far enough removed from his intervention to no longer needed. Additionally, he has been in contact with his primary marine radio installer and servicer (Judy) to discuss increasing shortness of breath with exertion and the presence of a murmur. Apparently he is being scheduled for an outpatient echocardiogram. Upon admission to the floor patient reports feeling weak but denies any further chest tightness or discomfort, shortness of breath, palpitations or irregular heart rate. Patient denies any changes in vision, headache, weakness, loss of coordination or balance, recent illness, recent trauma or injury. In the ER early cardioversion was performed due to unstable nature of the patient's presentation given his chest pain and significant shortness of breath. Furthermore, symptoms have only been present for 2 hours making him appropriate and safe for cardioversion. Cardiac rhythm post-cardioversion: NSR. ER provider consulted with Cardiology and recommended that the patient be admitted, placed on Eliquis and have an echo scheduled for tomorrow. Patient History Medical History (Updated 11/11/20 @ 06:15 by CARLOS EDUARDO SalasLISSETTE) Atrial fibrillation (~01/2018) Chronic back pain (~2014) Gonorrhea (~2011) History of non-ST elevation myocardial infarction (NSTEMI) Measles Surgical History (Updated 11/11/20 @ 06:14 by CARLOS EDUARDO SalasLISSETTE) Anesthesia History of angioplasty (~01/2018) History of hip replacement (~2016) History of intravascular stent placement Family & Social History Family History (Updated 11/11/20 @ 06:16 by CARLOS EDUARDO SalasLISSETTE) Father Dementia TIA (transient ischemic attack) Brother Stented coronary artery Social History: household members spouse Prior Living Arrangements House Safety & Behavioral: Feels Safe in Current Yes Environment Been Physically Hurt or No Threatened By a Person Suicidal Ideation Description None Suicide Plan Description No Plan Tobacco & Substance use: Smoking Status Former smoker alcohol intake current alcohol intake frequency 3 or more drinks per day Substance Use Type does not use Meds Home Medications and Allergies Home Medications Medication Instructions Recorded Confirmed Type aspirin 81 mg tablet,delayed 81 mg PO DAILY 06/21/19 11/10/20 History release atorvastatin 80 mg tablet 80 mg PO BEDTIME 06/21/19 11/10/20 History clopidogrel 75 mg tablet 75 mg PO DAILY 06/21/19 06/21/19 History ezetimibe 10 mg tablet 10 mg PO DAILY 06/21/19 06/21/19 History irbesartan 300 mg tablet 300 mg PO DAILY 06/21/19 11/10/20 History metoprolol tartrate 50 mg tablet 50 mg PO BID 06/21/19 11/10/20 History pantoprazole 40 mg tablet,delayed 40 mg PO DAILY PRN 06/21/19 06/21/19 History release isosorbide mononitrate 30 mg PO DAILY 11/10/20 11/10/20 History Allergies Allergy/AdvReac Type Severity Reaction Status Date / Time No Known Drug Allergies Allergy Verified 06/21/19 14:35 Review of Systems Review of Systems ROS: Yes All systems reviewed with the patient and are negative except as otherwise documented Constitutional Constitutional: Reports system reviewed and no additional complaints, except as documented Eyes Eyes: Reports system reviewed and no additional complaints, except as documented ENT Ears, Nose, Mouth, and Throat: Yes system reviewed and no additional complaints, except as documented Cardiovascular Cardiovascular: Reports system reviewed and no additional complaints, except as documented, Reports chest pain, Reports chest pain at rest, Reports rapid heart rate, Reports irregular heart rhythm, Reports lightheadedness, Reports palpitations and Reports dyspnea Respiratory Respiratory: Reports system reviewed and no additional complaints, except as documented and Reports dyspnea Gastrointestinal Gastrointestinal: Reports system reviewed and no additional complaints, except as documented Genitourinary Genitourinary: Reports system reviewed and no additional complaints, except as documented Musculoskeletal Musculoskeletal: Reports system reviewed and no additional complaints, except as documented Integumentary/Breasts Skin/Breast: Reports system reviewed and no additional complaints, except as documented Neurologic Neurologic: Reports system reviewed and no additional complaints, except as docu mented Psychiatric Psychiatric: Reports system reviewed and no additional complaints, except as documented Endocrine Endocrine: Reports system reviewed and no additional complaints, except as documented and Reports palpitations Hematologic/Lymphatic Hematologic/Lymphatic: Reports system reviewed and no additional complaints, except as documented Allergic/Immunologic Allergic/Immunologic: Reports system reviewed and no additional complaints, except as documented Exam Vital Signs (past 8 hours): - 11/10/20 22:00 11/10/20 22:30 11/10/20 23:00 Temperature Pulse Rate 74 74 74 Respiratory Rate 21 20 Blood Pressure 137/85 129/82 132/82 Pulse Oximetry 96 96 96 11/10/20 23:35 11/11/20 05:13 Temperature 97.8 F 98.7 F Pulse Rate 76 68 Respiratory Rate 20 17 Blood Pressure 160/97 H 120/81 Pulse Oximetry 96 97 Oxygen Delivery Method Room Air Oxygen Flow Rate 0 Narrative Exam Narrative: General: Patient is a 65-[facility] [place], well-nourished in no distress at this time. HEENT: Normocephalic, atraumatic, extraocular muscles intact, oral pharynx is clear and mucous membranes are moist. Neck is supple and symmetric, trachea is midline, no adenopathy, no thyroid enlargement, nontender, no masses palpated. Negative for JVD Chest: Normal AP diameter and contour without kyphoscoliosis, no nasal flaring, retractions, or tachypneic labored Lungs: Auscultation of all lung sheridan are clear without adventitious sounds, wheezes, rhonchi, or rales. Cardio: S1 & S2 with regular rate and rhythm, no murmur heard, no rubs, or gallops, no carotid bruit, no cardiac pulsations present. Abdomen: Soft nontender, negative for organomegaly, or masses. Bowel sounds are present in all 4 quadrants without guarding or rebound, no CVA tenderness. Musculoskeletal: Muscle strength and tone are equal within normal limits, no deformity, Aubrey crepitus, effusions, cyanosis, clubbing or edema present. Full range of motion intact radial and pedal pulses are normal. Skin: Warm dry and intact without rashes, ulcerations or petechiae. Neuro: Alert and orientated x3, strength is +5/5 in all extremities, sensation to touch intact, no gross deficits noted of cranial nerves. Psych: Patient has a well-kept appearance, appropriate affect, mental status attitude thought context and judgment are appropriate for age. Objective Labs Result Diagrams: 11/10/20 19:51 11/10/20 19:51 Labs: Laboratory Results - last 24 hr 11/10/20 11/10/20 11/10/20 19:51 19:51 19:51 WBC 9.1 RBC 4.62 Hgb 16.2 Hct 46.4 MCV 100.3 H MCH 34.9 H MCHC 34.8 RDW 12.9 Plt Count 241 Neut % (Auto) 51.6 Lymph % (Auto) 31.6 Kemper % (Auto) 8.4 Eos % (Auto) 7.3 H Baso % (Auto) 1.1 Neut # (Auto) 4700 Lymph # (Auto) 2900 Kemper # (Auto) 800 Eos # (Auto) 700 H Baso # (Auto) 100 PT 10.3 INR 0.9 APTT 31 Sodium 136 L Potassium 3.8 Chloride 101 Carbon Dioxide 25 BUN 18 Creatinine 1.49 H Estimated GFR 47.5 L BUN/Creatinine Ratio 12.1 Glucose 152 H Calcium 9.9 Total Bilirubin 0.5 AST 41 ALT 43 Alkaline Phosphatase 122 Total Creatine Kinase 67 CK-MB (CK-2) TNP CK-MB (CK-2) Rel Index TNP Troponin I < 0.012 NT-Pro-B Natriuret Pep Total Protein 8.0 Albumin 4.7 Globulin 3.3 Albumin/Globulin Ratio 1.4 Lipase 129 COVID-19 PCR 11/10/20 11/10/20 19:51 22:30 WBC RBC Hgb Hct MCV MCH MCHC RDW Plt Count Neut % (Auto) Lymph % (Auto) Kemper % (Auto) Eos % (Auto) Baso % (Auto) Neut # (Auto) Lymph # (Auto) Kemper # (Auto) Eos # (Auto) Baso # (Auto) PT INR APTT Sodium Potassium Chloride Carbon Dioxide BUN Creatinine Estimated GFR BUN/Creatinine Ratio Glucose Calcium Total Bilirubin AST ALT Alkaline Phosphatase Total Creatine Kinase CK-MB (CK-2) CK-MB (CK-2) Rel Index Troponin I NT-Pro-B Natriuret Pep 212 H Total Protein Albumin Globulin Albumin/Globulin Ratio Lipase COVID-19 PCR Negative Assessment & Plan Assessment & Plan narrative: This patient requires acute care inpatient hospital management for onset of recurrence of atrial fibrillation requiring emergency room cardioversion with a history of LBBB, NSTEMI with subsequent stent placement. The patient is at much higher risk for medical and surgical complications because due to his obesity, CAD and hyperlipidemia. These factors increase the difficulty and complexity of medical and surgical interventions and increases the chances of poor outcomes such as morbidity and mortality, as well as complications such as diabetes, CVA or subsequent cardiovascular event. 1. Recurrence, atrial fibrillation, acute, present on admission, cardioversion in the ER resulted in normal sinus rhythm. Possible ACS, Ischemic versus nonischemic cardiomyopathy.CHF. Likely secondary to history of LBBB, as evidenced by NSTEMI with stent placement, coronary artery disease, hyperlipidemia, hypertension, obesity. -chest x-ray:Cardiomegaly and mild congestion. Increased interstitial reticular markings may represent pulmonary edema versus chronic lung parenchymal disease. No focal infiltrate. No pleural effusion or pneumothorax. EKG: Atrial fibrillation-resolved with cardioversion resulting in normal sinus rhythm -Consultation #1: call to Dr. Mancini (Cardio) to discuss case given recent visit to Dr. Kim and request for outpatient echo. He requests anticoagulation, admission for monitoring and echo. Change Metoprolol Succinate 50mg PO BID to tartrate for longer effect. Will relay note to Dr. Kim for in house consultation tomorrow -patient had onset of atrial focalization several years ago prior to NSTEMI and stent placement for LBBB concurrently managed by -patient to be monitored on tele medicine, Vital signs q.4 hours orthostatics q.a.m., notified for RR above 30, increasing O2 requirements, systolic BP less than 95, and urinary output less than 100 cc/hour, activity bed rest with bathroom privileges up only with assistance, fall precautions, daily weights, strict I&O, O2 as needed to maintain O2 sat above 92%,ABG in severe respiratory distress, diet sodium 2 g restriction heart healthy -IV fluid: None, 97%-O2 saturation on room -medications: In ER : Eliquis 5, profile 100 mg and IV fluids provided in the emergency room normal saline 1000 cc -labs ordered: BNP TSH with T4, troponins x3, CBC, A1c, -medications:Change metoprolol (Lopressor) 50mg BID to metoprolol ER (Toprol) 100mg QD, Eliquis 5 mg p.o. b.i.d. -continue patient's atorvastatin 80 mg, Irbesarten 300 mg p.o. daily, and iso sorbide mononitrate 30 mg daily - diagnostic ordered: Echo -consults ordered physical therapy, occupational therapy, discharge consult. -prevention vaccine: Review of patient has influenza and pneumococcal vaccine -assess for anemia or polycythemia leukocytosis, hyponatremic, electrolyte abnormality 2. Coronary artery disease with stents, secondary to hyperlipidemia, chronic, not present on admission -continue patient's atorvastatin 80 mg, Irbesarten 300 mg p.o. daily, and isosorbide mononitrate 30 mg daily -please see above intervention 3. Hypertension, essential, stable, not present on admission -continue patient's atorvastatin 80 mg, Irbesarten 300 mg p.o. daily, and isosorbide mononitrate 30 mg daily 4. Obesity, BMI of 32.3, chronic, present on admission -patient Education on diet, exercise, and lifestyle changes, as well as decreasing alcohol intake Code status: Full Surrogate/plan of care: Patient has POA, spouse Luiz [place] PCR: Negative VTE prophylaxis: Contraindicated patient placed on Eliquis 5 mg p.o. b.i.d. assess for anemia or polycythemia leukocytosis, hyponatremic, electrolyte abnormality, troponins 1 q.6 hours x3,ABG in severe respiratory distress
[2020-11-11 06:21] LABS: Free T4, Direct Thyroxine 1.02 ng/dL (0.78-2.19)
[2020-11-11 06:34] LABS: Thyroid Stimulating Hormone 1.89 uIU/mL (0.47-4.68)
[2020-11-11 06:48] LABS: Troponin I 0.435 ng/mL (0.01-0.034)
[2020-11-11 06:52] LABS: Hemoglobin A1C% w Est Avg Glu 5.3 % (4.0-6.0)
[2020-11-11 08:18] VITALS: BP 156/93; BP 164/96; PULSE 69; RESP 16; TEMP 36.5; O2SAT 97
[2020-11-11 08:44] VITALS: BP 164/96; PULSE 74
[2020-11-11] MEDS: METOPROLOL ER 50 MG TABLET 100 MG PO (08:44)
[2020-11-11] MEDS: APIXABAN 5 MG TABLET PO (08:45)
[2020-11-11] MEDS: ASPIRIN EC 81 MG TABLET PO (08:45)
[2020-11-11] MEDS: ISOSORBIDE MONONITRATE ER 30 MG TABLET PO (08:45)
[2020-11-11] MEDS: IRBESARTAN 150 MG TABLET 300 MG PO (09:24)
--- NOTE | 2020-11-11 09:26 | OT.IPNOTE ---
Per Dr. Mosher to hold therapy for pt due to high Troponin .435, to recheck on pt tomorrow for OT eval if appropriate.
--- NOTE | 2020-11-11 09:31 | PT-IP ANOTE ---
Pt was discussed at AM interdisciplinary rounds. Hospitalist requested PT hold treatment due to elevated troponin. Will follow serial troponin values and re-assess for appropriateness later today.
[2020-11-11] MEDS: SODIUM CHLORIDE 0.9% FLUSH 10 ML IV (10:59)
[2020-11-11 11:00] VITALS: BP 120/80; PULSE 73; RESP 16; TEMP 36.6; O2SAT 97
--- NOTE | 2020-11-11 15:20 | CM.DANOTE ---
Patient is a 65 year old male who was admitted on 11/10/20 for SOB, Tightness Chest. Pt has [employer] for insurance and his PCP is Dr. Stephan Goodwin. EMR was reviewed. Per MD, pt with hx of AFIB and stent placement and waiting on Echo as trops elevated but EKG normal range. PT ordered and pending, although pt does not feel PT eval needed at this time. SW met bedside with pt and explained role and pt confirms he lives at home in [place] with his and no other local family and pt is quite independent at baseline and drives and does not use equipment to ambulate. Pt states they moved from [place] over a year ago and have only seen Dr. Goodwin once but is also established with [facility] Dr. Kim. Pt states in [place] he had an orthopedic surgery and utilized HH but did not feel they were very beneficial. Pt states he has been up walking in the room and denies any further dizziness or fatigue and hopeful he can d/c home soon if stable and declines any further needs at this time. Pt states his spouse is retired and available for 14/06 assist if needed at d/c. Plan: SW to follow closely for plan of home with spouse when medically stable and any further identified needs. PARR[facility] Discharge Planning/Care Management Advanced directive, confirm from FAMILY Start: 11/11/20 05:28 Freq: Q24H Status: Active Protocol: Document 11/10/20 23:35 TH (Rec: 11/11/20 05:32 TH [id number]) Advance Directive, confirm on record Time 23:35 Person contacted Patient Copy received No Advanced directive available on record No CM Discharge Assessment Start: 11/11/20 15:19 Freq: Status: Active Protocol: Document 11/11/20 15:19 BF (Rec: 11/11/20 15:20 BF [id number]) Discharge Planning Assessment Assigned Building Components Designer PARRIS Velázquez DPOA/Assigned Designee Name spouse Loren Contact Information [phone] Advance Directives? No: spouse plans to bring in copy Advance Directives on File No History Provided By Patient,Medical Record Has Patient been admitted in last 30 No days? Prior Living Arrangements House Household Members spouse Type of transporation used prior to Drives own vehicle admit Independent with ADL's Yes Is patient alert and oriented? Yes Caregiver for Another No Barriers to Discharge No Discharge Plan Home Transportation Arrangement Spouse retired and can provide transport Referrals Initiated None needed Whiteboard Updated in Patient Room with Yes name and ext. # of Building Components Designer Review Status In Process Please Provide Date Initial DC 11/11/20 Assessment Was Performed Next Review Type Continued Stay Review
[2020-11-11 15:29] LABS: Troponin I 0.267 ng/mL (0.01-0.034)
[2020-11-11 15:46] VITALS: BP 140/89; PULSE 65; RESP 18; TEMP 36.6; O2SAT 96
--- NOTE | 2020-11-11 17:51 | PC.NURSE ---
evening shift/discharge note- Patient discharged home. Reviewed discharge instructions and education with patient and signed. IV lie removed and bandage applied. Tele monitor removed. Patient dressed self and packed up personal belongings. Patient left via wheelchair to private car with all personal belongings and at side at 1745.
--- NOTE | 2020-11-11 18:50 | PM.DS.1 ---
History of Present Illness History of Present Illness Date Patient Seen: 11/11/20 Chief complaint: tightness in chest, SOB, elevated HR Narrative: Patient is a 65-year-old male Antelmo Watkins, who presented to the emergency room with a chief complaint of a sudden onset anterior chest pressure and shortness of breath that started about 2 hours prior to arrival. Additionally, he complains of a rapid and irregular heart rhythm and states he feels like prior episodes of atrial fibrillation. Patient is a former smoker times 20 years quit in 1997 has a history of coronary artery disease and AFib (no anticoagulation). Patient reports that this evening at home following dinner he went downstairs and backup in his split-level home and began having chest tightness rotations a distant feel right and I had felt this before so I knew it was ?. He then went downstairs and back up again to retrieve his nitro and tried 1 nitro x1 which did not relieve his chest tightness or shortness of breath. His chest pressure is heavy, squeezing and in his anterior chest. He denies provocation, palliation or radiation of his pain. Additionally he is significantly short of breath with even minimal exertion, this started with his chest pain. He had an NSTEMI with subsequent catheterization and stent a few years ago. He was taken off his clopidogrel relatively recently as he was thought to be far enough removed from his intervention to no longer needed. Additionally, he has been in contact with his primary poultry processor (Judy) to discuss increasing shortness of breath with exertion and the presence of a murmur. Apparently he is being scheduled for an outpatient echocardiogram. Upon admission to the floor patient reports feeling weak but denies any further chest tightness or discomfort, shortness of breath, palpitations or irregular heart rate. Patient denies any changes in vision, headache, weakness, loss of coordination or balance, recent illness, recent trauma or injury. In the ER early cardioversion was performed due to unstable nature of the patient's presentation given his chest pain and significant shortness of breath. Furthermore, symptoms have only been present for 2 hours making him appropriate and safe for cardioversion. Cardiac rhythm post-cardioversion: NSR. ER provider consulted with Cardiology and recommended that the patient be admitted, placed on Eliquis and have an echo scheduled for tomorrow. Discharge Providers Provider Date of admission: 11/10/20 22:15 Discharge Date: 11/11/20 Primary care physician: Stephan Goodwin MD Consults: 11/10/20 23:56 Consult to Discharge Planning Routine Comment: Consult to Occupational Therapy Evaluate & Treat Comment: Physician Instructions: Evaluate and treat Consult to Physical Therapy Evaluate & Treat Comment: Physician Instructions: Evaluate and Treat Discharge provider: Becca Mosher MD Summary Hospital Course Discharge Diagnosis: 1. Paroxysmal atrial fibrillation, status post cardioversion now in sinus rhythm 2. Type 2 UT 3. History of NSTEMI 4. Hyperlipidemia 5. Hypertension Hospital Course: Patient was admitted to the hospital following an episode of atrial fibrillation. He initially developed shortness of breath and chest tightness. He was found to be in rapid atrial fibrillation. The patient was cardioverted in the emergency department. He converted to normal sinus rhythm. During his hospital stay he had an elevated troponin of 0.435. Repeat troponin was point 235 and improved. EKG showed no acute ST T wave change. The patient was ambulated on the floor. He had no further chest pain or chest tightness. He was deemed appropriate for discharge and arrangements were made for him to discharge home. The patient sees Dr. Faustin. He will follow-up with Dr. Faustin as an outpatient with plans for stress test in the future. This was communicated to the patient. Status at Discharge Cognitive/behavioral status at discharge: oriented Functional status at discharge: independent ambulation Overall status at discharge: patient is back to baseline Time Spent with Patient Time spent: Less than 30 minutes Exam Vital Signs (past 8 hours): - 11/11/20 11:00 11/11/20 15:46 Temperature 97.8 F 97.9 F Pulse Rate 73 65 Respiratory Rate 16 18 Blood Pressure 120/80 140/89 Pulse Oximetry 97 96 Oxygen Delivery Method Room Air Oxygen Flow Rate 0 Narrative Exam Narrative: Pleasant gentleman in no acute distress Lungs: Clear to auscultation Cardiac exam: Regular rate and rhythm normal S1-S2 Abdomen soft nontender nondistended Extremities: No edema Objective Labs Result Diagrams: 11/10/20 19:51 11/11/20 05:10 Labs: Laboratory Results - last 24 hr 11/10/20 11/10/20 11/10/20 19:51 19:51 19:51 WBC 9.1 RBC 4.62 Hgb 16.2 Hct 46.4 MCV 100.3 H MCH 34.9 H MCHC 34.8 RDW 12.9 Plt Count 241 Neut % (Auto) 51.6 Lymph % (Auto) 31.6 [place] % (Auto) 8.4 Eos % (Auto) 7.3 H Baso % (Auto) 1.1 Neut # (Auto) 4700 Lymph # (Auto) 2900 [place] # (Auto) 800 Eos # (Auto) 700 H Baso # (Auto) 100 PT 10.3 INR 0.9 APTT 31 Sodium 136 L Potassium 3.8 Chloride 101 Carbon Dioxide 25 BUN 18 Creatinine 1.49 H Estimated GFR 47.5 L BUN/Creatinine Ratio 12.1 Glucose 152 H Hemoglobin A1c Calcium 9.9 Total Bilirubin 0.5 AST 41 ALT 43 Alkaline Phosphatase 122 Total Creatine Kinase 67 CK-MB (CK-2) TNP CK-MB (CK-2) Rel Index TNP Troponin I < 0.012 NT-Pro-B Natriuret Pep Total Protein 8.0 Albumin 4.7 Globulin 3.3 Albumin/Globulin Ratio 1.4 Lipase 129 TSH Free T4 COVID-19 PCR 11/10/20 11/10/20 11/11/20 19:51 22:30 05:10 WBC RBC Hgb Hct MCV MCH MCHC RDW Plt Count Neut % (Auto) Lymph % (Auto) [place] % (Auto) Eos % (Auto) Baso % (Auto) Neut # (Auto) Lymph # (Auto) [place] # (Auto) Eos # (Auto) Baso # (Auto) PT INR APTT Sodium 135 L Potassium 4.0 Chloride 108 H Carbon Dioxide 26 BUN 16 Creatinine 1.12 Estimated GFR > 60.0 BUN/Creatinine Ratio 14.3 Glucose 102 Hemoglobin A1c Calcium 8.8 Total Bilirubin 0.6 AST 32 ALT 31 Alkaline Phosphatase 75 Total Creatine Kinase CK-MB (CK-2) CK-MB (CK-2) Rel Index Troponin I NT-Pro-B Natriuret Pep 212 H Total Protein 6.1 L Albumin 3.5 Globulin 2.6 Albumin/Globulin Ratio 1.3 Lipase TSH Free T4 COVID-19 PCR Negative 11/11/20 11/11/20 11/11/20 05:10 05:10 05:10 WBC RBC Hgb Hct MCV MCH MCHC RDW Plt Count Neut % (Auto) Lymph % (Auto) [place] % (Auto) Eos % (Auto) Baso % (Auto) Neut # (Auto) Lymph # (Auto) [place] # (Auto) Eos # (Auto) Baso # (Auto) PT INR APTT Sodium Potassium Chloride Carbon Dioxide BUN Creatinine Estimated GFR BUN/Creatinine Ratio Glucose Hemoglobin A1c 5.3 Calcium Total Bilirubin AST ALT Alkaline Phosphatase Total Creatine Kinase CK-MB (CK-2) CK-MB (CK-2) Rel Index Troponin I 0.435 H* NT-Pro-B Natriuret Pep Total Protein Albumin Globulin Albumin/Globulin Ratio Lipase TSH 1.89 Free T4 1.02 COVID-19 PCR 11/11/20 14:38 WBC RBC Hgb Hct MCV MCH MCHC RDW Plt Count Neut % (Auto) Lymph % (Auto) [place] % (Auto) Eos % (Auto) Baso % (Auto) Neut # (Auto) Lymph # (Auto) [place] # (Auto) Eos # (Auto) Baso # (Auto) PT INR APTT Sodium Potassium Chloride Carbon Dioxide BUN Creatinine Estimated GFR BUN/Creatinine Ratio Glucose Hemoglobin A1c Calcium Total Bilirubin AST ALT Alkaline Phosphatase Total Creatine Kinase CK-MB (CK-2) CK-MB (CK-2) Rel Index Troponin I 0.267 H* NT-Pro-B Natriuret Pep Total Protein Albumin Globulin Albumin/Globulin Ratio Lipase TSH Free T4 COVID-19 PCR PFSH Medical History (Updated 11/11/20 @ 06:15 by FUNMILAYO Salas) Atrial fibrillation (~01/2018) Chronic back pain (~2014) Gonorrhea (~2011) History of non-ST elevation myocardial infarction (NSTEMI) Measles Surgical History (Updated 11/11/20 @ 06:14 by FUNMILAYO Salas) Anesthesia History of angioplasty (~01/2018) History of hip replacement (~2016) History of intravascular stent placement Family History (Updated 11/11/20 @ 06:16 by FUNMILAYO Salas) Father Dementia TIA (transient ischemic attack) Brother Stented coronary artery Social History household members: spouse Smoking Status: Former smoker alcohol intake: current Discharge Assessment & Plan Assessment and Plan Assessment: 1. Paroxysmal atrial fibrillation now in sinus rhythm 2. Type 2 UT 3. History of NSTEMI 4 Hyperlipidemia 5 Hypertension Discharge Plan Discharge Plan Patient Disposition: Home Discharge orders & Medications Prescriptions: New metoprolol succinate 50 mg Tablet Extended Release 24 Hr 100 mg PO DAILY Qty: 30 RF: 0 Eliquis 5 mg Tablet 5 mg PO BID Qty: 30 RF: 0 Continued atorvastatin 80 mg tablet 80 mg PO BEDTIME RF: 0 irbesartan 300 mg tablet 300 mg PO DAILY RF: 0 aspirin 81 mg tablet,delayed release (DR/EC) 81 mg PO DAILY RF: 0 isosorbide mononitrate 30 mg Tablet Extended Release 24 Hr 30 mg PO DAILY RF: 0 Repatha SureClick 140 mg/mL pen injector SUBCUT Q2W RF: 0 Discontinued metoprolol tartrate 50 mg tablet 50 mg PO BID RF: 0 Follow up/Referrals: Stephan Goodwin MD [Primary Care Provider] - Discharge Health Status Multidrug resistant organism: No MDRO Diet/Activity/Treatments Diet: Low-sodium and Low-cholesterol Visit Report/Discharge Packet Instructions: Atrial Fibrillation, DI for Chest Pain Discharge Data Primary Care Provider: Stephan Goodwin Attending Provider: Alexandra Cedeño
== END 2020-11-11 17:45 | disposition home or self-care (01) ==
LOC: ED 21:57 → AC 22:16
PROVIDERS: Internal Medicine; Admitting Provider Nurse Practitioner Family; Emergency Provider Emergency Medicine; PCP Student in an Organized Health Care Education/Training Program; Referring Provider Emergency Medicine; Visit Provider Nurse Practitioner Family
DX: I48.0 Paroxysmal atrial fibrillation (principal); R07.9 Chest pain, unspecified; I21.A1 Myocardial infarction type 2; I25.10 Atherosclerotic heart disease of native coronary artery without angina pectoris; R06.02 Shortness of breath; I25.2 Old myocardial infarction; Z20.828 Contact with and (suspected) exposure to other viral communicable diseases; E78.5 Hyperlipidemia, unspecified; E66.9 Obesity, unspecified; Z87.891 Personal history of nicotine dependence; Z95.828 Presence of other vascular implants and grafts
CPT/HCPCS: 36415; 71045; 80053; 82550; 82962; 83036; 83690; 83880; 84439; 84443; 84484; 85025; 85610; 85730; 87635; 92960; 93005; 93306; 94770; 96360; 99152; 99285; 99291; G0378; J2704

== ENCOUNTER → 2021-02-19 10:35 | Outpatient (CLI) | payer BC, SELFPAY ==
[2020-11-10 22:43] VITALS: BMI 32.2
[2021-02-19] MEDS: COVID-19 VACC #1, MRNA(MOD) 100 MCG/0.5 ML VIAL IM (10:43)
== END ==
PROVIDERS: PCP Student in an Organized Health Care Education/Training Program; Visit Provider Internal Medicine
DX: Z23 Encounter for immunization (principal)
CPT/HCPCS: 0011A; 91301

== ENCOUNTER → 2021-03-19 10:30 | Outpatient (CLI) | payer BC, SELFPAY ==
[2020-11-10 22:43] VITALS: BMI 32.2
[2021-03-19] MEDS: COVID-19 VACC #2, MRNA(MOD) 100 MCG/0.5 ML VIAL IM (10:36)
== END ==
PROVIDERS: PCP Student in an Organized Health Care Education/Training Program; Visit Provider Internal Medicine
DX: Z23 Encounter for immunization (principal)
CPT/HCPCS: 0012A; 91301

== ENCOUNTER → 2021-11-10 08:55 | Outpatient (CLI) | payer MEDICARE, BC, SELFPAY ==
[2020-11-10 22:43] VITALS: BMI 32.2
--- NOTE | 2021-11-10 | DI.ECHO.S_ITS ---
[place] [facility]---------+ [facility] +---------+ : : [address] : : : : [id number] : : : : Phone: [phone]---------+ Echocardiogram Report + + :Name: ELIAN DIAZ Study Date: 11/10/2021 Height: 69.5 in: :[facility] ReadingLocation: Weight: 229 lb : : Gender: Male BSA: 2.2 m2 : :: 1955 Age: 66 yrs : :Reason For Study: Left bundle-branch block : :Ordering Physician: : :BELIA Performed By: Donnell Rodas : :Referring: DISHA GAMBLE : + + Interpretation Summary The left ventricular cavity is small. There is moderate concentric left ventricular hypertrophy. The ejection fraction is estimated to be 60-65%. There has been no significant change in LVEF since the previous exam. No significant LV outflow tract obstruction. The right ventricle is normal in size and function. There is reduced mobility of the posterior mitral valve leaflet with severe MAC of posterior mitral annulus. Mild calcification of anterior mitral annulus. There is mild mitral stenosis. The mitral valve mean gradient is 5 mmHg. Previous gradient 5.6 mmHg. There is mild to moderate mitral regurgitation. Compared to the prior echo study, there has been no change in the severity of mitral regurgitation. There is mild aortic regurgitation. Compared to the prior echo study, there has been no change in the severity of aortic regurgitation. Ascending aorta measures 4.5 cm. Previously 4.7 cm in diameter. Procedure: A two-dimensional transthoracic echocardiogram with color flow and Doppler was performed. Comparison is made with the echocardiogram of 11/11/2020. Images from the parasternal window were difficult to obtain and are suboptimal in quality. Fair image quality. The patient had a bundle branch block rhythm during the exam. The patient was in normal sinus rhythm during the exam. BP was attempted twice, reading was about 177 / 98. Patient stated this was very inaccurate. Left Ventricle: There is moderate concentric left ventricular hypertrophy. Proximal septal thickening is noted. There is no echo evidence for significant left ventricular outflow tract obstruction. The left ventricular cavity is small. There is no thrombus. The ejection fraction is estimated to be 60-65%. There has been no significant change since the previous exam. There are no focal wall motion abnormalities. MV E/A: 0.83 Med Peak E' Jhon: 8.1 cm/sec E/E' med: 17.1. Right Ventricle: The right ventricle is normal in size and function. Atria: The left atrium is moderately dilated. The left atrium has mildly decreased in size since the prior echo exam. Borderline right atrial enlargement. There is no Doppler evidence for an interatrial shunt. Mitral Valve: There is reduced mobility of the posterior mitral valve leaflet with severe MAC of posterior mitral annulus. Mild calcification of anterior mitral annulus. The mitral valve mean gradient is 5 mmHg. There is mild mitral stenosis. There is mild to moderate mitral regurgitation. Compared to the prior echo study, there has been no change in the severity of mitral regurgitation. Aortic Valve: The aortic valve is trileaflet. The aortic valve opens well. There is mild aortic valve sclerosis. There is no aortic valve stenosis. There is mild aortic regurgitation. Compared to the prior echo study, there has been no change in the severity of aortic regurgitation. Tricuspid Valve: The tricuspid valve is normal. Pulmonary artery pressures cannot be estimated because of the lack of a measurable TR jet velocity but the IVC suggests a CVP of around 3 mmHg. There is trace tricuspid regurgitation. Pulmonic Valve: The pulmonic valve is normal in structure and function. Great Vessels: The aortic root is borderline dilated. There is aortic root sclerosis/calcification. Ascending aorta measures 4.5 cm. The aortic arch is normal in size. The IVC is of normal diameter and collapses greater than 50% with a sniff. This suggests a low right atrial pressure of 3 mm Hg. Pericardium/ Pleura There is no pericardial effusion. There is an anterior echo-free space consistent with a fat pad. There is no pleural effusion. MMode/2D Measurements & Calculations LVIDd: 3.8 cm LVOT diam: 2.0 cm LVIDs: 2.4 cm Ao root diam: 3.7 cm FS: 36.8 % Ao Arch Diam (Prox Trans): 3.2 cm IVSd: 1.4 cm LVPWd: 1.6 cm LV rodriguez. diameter/BSA (cm/m^2): 1.7 LV sys. diameter/BSA (cm/m^2): 1.1 LA A2 area: 24.9 cm2 RA long axis: 5.6 cm LA A4 area: 18.2 cm2 LA length (vol): 5.9 cm LA vol: 64.8 ml LA vol index: 29.4 ml/m2 LVLs ap4: 5.2 cm LVLd ap2: 7.5 cm LVLs ap2: 5.4 cm TAPSE_phl: 2.4 cm Doppler Measurements & Calculations Ao V2 max: 177.0 cm/sec LVOT Max Jhon: 151.0 cm/sec Ao V2 mean: 127.0 cm/sec LV V1 max P.1 mmHg Ao max P.0 mmHg LV V1 VTI: 35.6 cm Ao mean P.0 mmHg PAZ(I,D): 3.0 cm2 Ao V2 VTI: 36.7 cm PAZ(V,D): 2.7 cm2 sev ratio: 0.97 PAZ indexed to BSA (cm^2/m^2): 1.4 MV E max jhon: 139.0 cm/sec PA V2 max: 81.3 cm/sec MV A max jhon: 167.0 cm/sec PA V2 mean: 60.8 cm/sec MV E/A: 0.83 PA mean P.0 mmHg Med Peak E' Jhon: 8.1 cm/sec PA pr(Accel): 27.7 mmHg E/E' med: 17.1 Lat Peak E' Jhon: 7.1 cm/sec E/E' lat: 19.7 E/e' average: 18.4 MV dec time: 0.38 sec MVA(VTI): 2.1 cm2 MV V2 mean: 104.5 cm/sec SV(LVOT): 111.8 ml MV mean P.0 mmHg MV V2 VTI: 53.4 cm AV VR_phl: 0.85 MV P1/2t-pr_phl: 110.0 msec PAZ(VTI)/BSA_phl: 1.4 Reading Physician:11:07 AM
== END ==
PROVIDERS: PCP Student in an Organized Health Care Education/Training Program; Referring Provider Internal Medicine Cardiovascular Disease; Visit Provider Internal Medicine Cardiovascular Disease
DX: I08.0 Rheumatic disorders of both mitral and aortic valves (principal); I44.7 Left bundle-branch block, unspecified; I48.91 Unspecified atrial fibrillation
CPT/HCPCS: 93306

== ENCOUNTER → 2021-12-12 09:46 | Outpatient (CLI) | payer MEDICARE, BC, SELFPAY ==
[2020-11-10 22:43] VITALS: BMI 32.2
[2021-12-12 11:10] LABS: BUN Creatinine Ratio 11.6 (6-22); Blood Urea Nitrogen 16 mg/dL (9-20); Calcium 10.8 mg/dL (8.4-10.2); Carbon Dioxide 28 mmol/L (22-32); Chloride 100 mmol/L (98-107); Cholesterol 127 mg/dL (140-199); Estimated Glomerular Filt Rate 51.7 mL/min (>60); Glucose 95 mg/dL (80-110); HDL Cholesterol 62 mg/dL (40-60); HEMOLYSIS < 15 (0-50); LDL Cholesterol Calculated 35 mg/dL (<100); Potassium 4.6 mmol/L (3.4-5.1); Sodium 135 mmol/L (137-145); Triglycerides 151 mg/dL (35-150)
== END ==
PROVIDERS: PCP Student in an Organized Health Care Education/Training Program; Referring Provider Internal Medicine Cardiovascular Disease; Visit Provider Internal Medicine Cardiovascular Disease
DX: E78.5 Hyperlipidemia, unspecified (principal)
CPT/HCPCS: 36415; 80048; 80061

== ENCOUNTER → 2022-07-09 09:07 | Outpatient (CLI) | payer MEDICARE, OTHER, SELFPAY ==
[2020-11-10 22:43] VITALS: BMI 32.2
[2022-07-09 11:18] LABS: Add Manual Diff / Slide Review NO; Basophils Absolute Auto 100 /uL (0-100); Basophils Percent Auto 1.3 % (0-2); Eosinophils Absolute Auto 500 /uL (0-450); Eosinophils Percent Auto 11.5 % (2-4); Hematocrit 37.7 % (41-53); Hemoglobin 13.3 g/dL (13.5-17.5); Lymphocytes Absolute Auto 900 /uL (1100-4500); Mean Corpuscular HGB Conc 35.3 % (30-36); Mean Corpuscular Hemoglobin 35.2 PG (26-34); Mean Corpuscular Volume 99.7 fL (80-100); Monocytes Absolute Auto 300 /uL (0-900); Monocytes Percent Auto 6.6 % (3-14); Neutrophils Absolute Auto 2400 /uL (1500-7000); Neutrophils Percent Auto 58.6 % (50-75); Platelet Count 194 X10^3/uL (150-400); Red Blood Cell Count 3.78 X10^6/uL (4.5-5.9); Red Cell Distribution Width 13.1 % (11.6-14.8); White Blood Cell Count 4.1 X10^3/uL (4.5-11.0)
[2022-07-09 11:50] LABS: BUN Creatinine Ratio 13.3 (6-22); Blood Urea Nitrogen 15 mg/dL (9-20); Calcium 9.9 mg/dL (8.4-10.2); Carbon Dioxide 27 mmol/L (22-32); Chloride 102 mmol/L (98-107); Estimated Glomerular Filt Rate > 60 mL/min (>60); Glucose 140 mg/dL (80-110); HEMOLYSIS < 15 (0-50); Sodium 137 mmol/L (137-145)
[2022-07-09 12:17] LABS: TSH w/ Reflex to FT4 1.17 uIU/mL (0.47-4.68)
[2022-07-09 12:19] LABS: Prostate Specific Antigen Scrn 0.774 ng/mL (0.1-4.0)
[2022-07-09 12:38] LABS: Vitamin B12 991 pg/mL (239-931)
[2022-07-09 12:40] LABS: HIV 1 & 2 Ab/Ag 4th Gen Combo NEGATIVE (NEGATIVE); Hep C Virus Ab w/Reflex Quant NEGATIVE s/c (NEGATIVE)
[2022-07-10 05:28] LABS: RPR Screen Non Reactive (Non Reactive)
[2022-07-10 06:42] LABS: Varicella IgG Antibody <135 index (Immune >165)
== END ==
PROVIDERS: PCP Student in an Organized Health Care Education/Training Program; Referring Provider Student in an Organized Health Care Education/Training Program; Visit Provider Student in an Organized Health Care Education/Training Program
DX: R53.83 Other fatigue (principal); Z12.5 Encounter for screening for malignant neoplasm of prostate; Z72.51 High risk heterosexual behavior; Z20.820 Contact with and (suspected) exposure to varicella
CPT/HCPCS: 36415; 80048; 82607; 84443; 85025; 86592; 86787; 86803; 87389; G0103

== ENCOUNTER → 2022-08-27 09:28 | Outpatient (CLI) | payer MEDICARE, OTHER, SELFPAY ==
[2020-11-10 22:43] VITALS: BMI 32.2
[2022-08-27 11:44] LABS: COVID19 -Nasal RAPID Negative (Negative)
== END ==
PROVIDERS: PCP Student in an Organized Health Care Education/Training Program; Visit Provider Surgery
DX: Z20.822 Contact with and (suspected) exposure to COVID-19 (principal); Z01.812 Encounter for preprocedural laboratory examination
CPT/HCPCS: 87635; C9803

== ENCOUNTER 2022-08-28 09:44 | Day surgery (SDC) | payer MEDICARE, OTHER, SELFPAY ==
[2020-11-10 22:43] VITALS: BMI 32.2
--- NOTE | 2022-08-28 | PATH_ITS ---
[facility] Accession Number: [id number] . 01 Material submitted: . PART A: cecum - CECAL POLYPS PART B: colon - DESCENDING COLON POLYPS . 01 Diagnosis: A. Cecal Polyps, Biopsies: Tubular adenoma x2. . B. Descending Colon Polyps, Biopsies: Tubular adenomas, hyperplastic polyp, and inflammatory polyp. [facility] 09/02/2022 1026 Local . 01 Electronically signed: . Rocky Dey MD, PhD, Pathologist NPI- [id number] . 01 Gross description: . Part A: CECAL POLYPS: Received in formalin are 3 fragment(s) of edwards, soft tissue measuring 0.2 x 0.2 x 0.1 cm to 0.5 x 0.4 x 0.2 cm submitted entirely in 1 cassette(s) Part B: DESCENDING COLON POLYPS: Received in formalin are multiple fragment(s) of edwards, soft tissue measuring 0.1 x 0.1 x 0.1 cm to 0.5 x 0.4 x 0.3 cm submitted entirely in 1 cassette(s) /DEVIN 08/31/20221954 Local . 01 Pathologist provided ICD-10: D12.0, D12.4, K51.40 . 01 CPT . 721473, 154029 Specimen Comment: A courtesy copy of this report has been sent to [facility] Performed at: 01 [facility] [address] [place] [address] [id number] MD Ravi Perez MD Phone: [phone]
[2022-08-28 10:12] VITALS: BP 125/80; PULSE 84; RESP 18; TEMP 36; O2SAT 97; BMI 68.9
[2022-08-28] MEDS: LACTATED RINGERS 1,000 ML 42 ML IV (10:23)
--- NOTE | 2022-08-28 11:11 | PM.HP.1 ---
History of Present Illness History of Present Illness Date Patient Seen: 08/28/22 Chief complaint: SDC Narrative: Mr. Livingston is a 67-year-old with high blood pressure atrial fibrillation he has had stents placed. He is otherwise pretty healthy he has no family history of colon cancer. He has had a colonoscopy in the past and believes that there were polyps. He has had no symptoms of bleeding or changes in bowel habits. He has had hip replacement and did fine with the anesthesia with that. He last took his Arixtra band on Wednesday this week.. Patient History Medical History (Updated 08/28/22 @ 11:27 by Latrice Valencia MD) Atrial fibrillation (~01/2018) Chronic back pain (~2014) Gonorrhea (~2011) History of non-ST elevation myocardial infarction (NSTEMI) Man who has sex with men Measles Surgical History (Updated 11/11/20 @ 06:14 by Alexandra Cedeño [facility]) Anesthesia History of angioplasty (~01/2018) History of hip replacement (~2016) History of intravascular stent placement Family & Social History Family History (Updated 11/11/20 @ 06:16 by Alexandra Cedeño [facility]) Father Dementia TIA (transient ischemic attack) Brother Stented coronary artery Social History: household members spouse Tobacco & Substance use: Smoking Status Former smoker alcohol intake current alcohol intake frequency 3 or more drinks per day Substance Use Type does not use Meds Home Medications and Allergies Home Medications Medication Instructions Recorded Confirmed Type atorvastatin 80 mg tablet 80 mg PO BEDTIME 06/21/19 08/28/22 History irbesartan 300 mg tablet 300 mg PO DAILY 06/21/19 08/28/22 History apixaban 5 mg tablet (Eliquis) 5 mg PO BID #30 tabs 11/11/20 08/28/22 Rx evolocumab 140 mg/mL subcutaneous 140 mg SUBCUT Q2W 11/11/20 08/28/22 History pen injector (Pio Sanabria) metoprolol succinate 50 mg 100 mg PO DAILY #30 tabs 11/11/20 08/28/22 Rx tablet,extended release 24 hr Allergies Allergy/AdvReac Type Severity Reaction Status Date / Time No Known Drug Allergies Allergy Verified 08/28/22 10:09 Exam Vital Signs (past 8 hours): - 08/28/22 10:12 Temperature 96.8 F L Pulse Rate 84 Respiratory Rate 18 Blood Pressure 125/80 Pulse Oximetry 97 Oxygen Delivery Method Room Air Oxygen Flow Rate 0 Oxygen Delivery Method Room Air Oxygen Flow Rate 0 Const General: cooperative, healthy appearing and comfortable Nutritional Appearance: obese HENMT Head: normal to inspection Eyes General: appearance normal, both eyes and all related structures Neck Neck: normal visual inspection Resp Effort & Inspection: normal respiratory effort and able to speak in complete sentences Cardio Rate: regular rate GI Inspection: normal to inspection Palpation: soft and No tender Extrem General: normal to inspection Assessment & Plan Assessment and plan (1) Colon cancer screening: Status: Acute Assessment & Plan narrative: I discussed risks benefits and alternatives to screening colonoscopy Mr. Crawford including but not limited to complications from conscious sedation as well as perforation of the colon. The patient understands these risks and would like to proceed. His had colon cancer so he is well-versed in this type of screening. Time Spent With Patient Critical Care time: I spent a total of [] minutes of critical care time on this patient's care today; this time is exclusive of procedural time.
[2022-08-28] MEDS: fentaNYL 100 MCG/2 ML INJ 150 MCG IV (11:43)
[2022-08-28] MEDS: MIDAZOLAM 5 MG/5 ML VIAL IV (11:43)
--- NOTE | 2022-08-28 12:39 | PM.OP.COLON ---
Operative Date/Time/Diagnoses Date of procedure: 08/28/22 Time of procedure: 12:40 Pre-op diagnosis: Screening colonoscopy Post-op diagnosis: same Procedure & Clinicians Study performed: Screening colonoscopy Same procedure as scheduled: Yes Indications: Screening Surgeon: Latrice Valencia Procedure Notes Procedure in detail: Patient was taken to the endoscopy suite and placed in the left lateral decubitus position. Conscious sedation was induced after a time-out was performed. He was given a total of 5 mg of Versed and 150 mcg of fentanyl. A digital rectal exam was preformed and normal. The colonoscope was introduced into the anus and advanced into the cecum. There were scattered diverticula seen in the left sigmoid colon. The prep was not ideal and there were many solid chunks of stool mixed in with liquid. I was able to irrigate these chunks and get a good exam. The cecum was intubated, a photograph was taken of the appendiceal orifice. There were 2 small cecal polyps which were snared and removed. Further withdrawal revealed a small polyp in the descending colon and another larger polyp further down in the descending colon. Electrocautery and snare was used for the 2nd most polyp which was removed in 2 separate bites. These were sent together to pathology as descending colon polyps. There was some bleeding from the polypectomy sites but within normal limits. Patient tolerated the procedure well and went in good condition to the postoperative care unit. internal hemorrhoids were seen. Scope withdrawal time: 53 Sedation minutes: 61 Findings: divertiulosis, internal hemorrhoids and polyp(s) Specimen(s): other (1. Cecal polyps x2 2. Descending colon polyps x2) Complications: none Post-procedure Plan for aftercare: 3-5 year follow-up depending on pathology of polyps. Would hold Eliquis for 1 more day after procedure.
[2022-08-28 12:42] VITALS: BP 115/73; PULSE 63; RESP 13; TEMP 36.3; O2SAT 97
[2022-08-28 12:47] VITALS: BP 117/83; PULSE 63; RESP 19; O2SAT 96
[2022-08-28 12:52] VITALS: BP 129/85; PULSE 63; RESP 19; TEMP 36.3; O2SAT 96
[2022-08-28 13:10] VITALS: BP 129/81; PULSE 62; RESP 16; TEMP 36.8; O2SAT 97
== END 2022-08-28 13:22 | disposition home or self-care (01) ==
PROVIDERS: PCP Student in an Organized Health Care Education/Training Program; Referring Provider Surgery; Visit Provider Surgery
PROC: 0DJD8ZZ Inspection of Lower Intestinal Tract, Via Natural or Artificial Opening Endoscopic (ICD-10-PCS; CPT 45378; principal; 2022-08-28 10:45)
DX: Z12.11 Encounter for screening for malignant neoplasm of colon (principal); K57.30 Diverticulosis of large intestine without perforation or abscess without bleeding; K64.8 Other hemorrhoids; D12.0 Benign neoplasm of cecum; D12.4 Benign neoplasm of descending colon
CPT/HCPCS: 45385; 99152; 99153; J2250; J3010

== ENCOUNTER → 2023-01-20 09:11 | Outpatient (CLI) | payer MEDICARE, BC, OTHER, SELFPAY ==
[2020-11-10 22:43] VITALS: BMI 32.2
--- NOTE | 2023-01-20 09:13 | DI.ECHO.S_ITS ---
[facility]---------+ [facility] +---------+ : : [address] : [place] : : : : [address] : : : : Phone: [phone]---------+ Echocardiogram Report + + :Name: ELIAN DIAZ Study Date: 01/20/2023 Height: 70 in : :[facility] ReadingLocation: Weight: 204 lb : : Gender: Male BSA: 2.1 m2 : :: 1955 Age: 67 yrs BP: 117/79 mmHg: :Reason For Study: THORACIC AORTIC ECTASIA : :Ordering Physician: MAVIS, : :DISHA Performed By: JADEN DIAZ : :Referring: DISHA GAMBLE : + + Interpretation Summary The left ventricle is normal in size. The ejection fraction is estimated to be 55-60%. Previous LVEF 60 to 65%. MV E/A: 0.79 Med Peak E' Jhon: 4.1 cm/sec The right ventricle is borderline dilated. The right ventricular systolic function is normal. There is reduced mobility of the posterior mitral valve leaflet with severe MAC of posterior mitral annulus. Mild calcification of anterior mitral annulus. Mean gradient across mitral valve about 4 mmHg. Previously 5 mmHg. Overall mild mitral stenosis. There is mild mitral regurgitation. Compared to the prior echo study, there has been a decrease in the severity of mitral regurgitation. The ascending aorta is moderately enlarged. 4.5 cm in diameter. Unchanged from September 18, 2021, that time 4.5 cm as well. Procedure: A two-dimensional transthoracic echocardiogram with color flow and Doppler was performed. The study quality was technically adequate. Comparison is made with the echocardiogram of 11/10/2021. The patient was in 55-95 during the exam. The patient had a bundle branch block rhythm during the exam. Left Ventricle: Left ventricular wall thickness is mildly increased. The left ventricle is normal in size. Proximal septal thickening is noted. There is no thrombus. The ejection fraction is estimated to be 55-60%. Left ventricular systolic function is normal. Septal motion is consistent with conduction abnormality. MV E/A: 0.79 Med Peak E' Jhon: 4.1 cm/sec. Right Ventricle: The right ventricle is borderline dilated. The right ventricular systolic function is normal. Atria: The left atrium is mildly dilated. The left atrium has mildly decreased in size since the prior echo exam. The right atrium is normal in size. There is no Doppler evidence for an interatrial shunt. Mitral Valve: There is severe mitral annular calcification. There is reduced mobility of the posterior mitral valve leaflet with severe MAC of posterior mitral annulus. Mild calcification of anterior mitral annulus. Mean gradient across mitral valve about 4 mmHg. Previously 5 mmHg. Overall mild mitral stenosis. There is mild mitral stenosis. There is mild mitral regurgitation. Compared to the prior echo study, there has been a decrease in the severity of mitral regurgitation. Aortic Valve: The aortic valve is moderately calcified. There is no aortic valve stenosis. There is mild aortic regurgitation. Tricuspid Valve: The tricuspid valve is normal in structure and function. Pulmonary artery pressures cannot be estimated because of the lack of a measurable TR jet velocity. There is trace tricuspid regurgitation. Pulmonic Valve: The pulmonic valve is not well seen, but is grossly normal. There is no pulmonic valvular regurgitation. Great Vessels: The aortic root is normal size. The ascending aorta is moderately enlarged. The IVC is of normal diameter and collapses greater than 50% with a sniff. This suggests a low right atrial pressure of 3 mm Hg. Pericardium/ Pleura There is no pericardial effusion. There is no pleural effusion. MMode/2D Measurements & Calculations LVIDd: 4.2 cm LVOT diam: 2.0 cm LVIDs: 2.8 cm Ao root diam: 3.7 cm FS: 33.3 % asc Aorta Diam: 4.5 cm IVSd: 1.2 cm Ao Arch Diam (Prox Trans): 3.2 cm LVPWd: 1.1 cm LV rodriguez. diameter/BSA (cm/m^2): 2.0 LV sys. diameter/BSA (cm/m^2): 1.3 LA A2 area: 26.1 cm2 RA long axis: 5.1 cm LA A4 area: 19.6 cm2 RA area: 18.3 cm2 LA length (vol): 5.9 cm RA vol: 56.2 ml LA vol: 73.5 ml RA : 26.7 ml/m2 LA vol index: 34.9 ml/m2 RVD1 (basal): 4.5 cm LVLs ap4: 7.2 cm LVLd ap2: 8.1 cm RV Mid_phl: 3.6 cm LVLs ap2: 6.5 cm TAPSE_phl: 2.3 cm Doppler Measurements & Calculations Ao V2 max: 135.0 cm/sec LVOT Max Jhon: 122.0 cm/sec Ao V2 mean: 108.0 cm/sec LV V1 max P.0 mmHg Ao max P.3 mmHg LV V1 VTI: 28.3 cm Ao mean P.0 mmHg PAZ(I,D): 2.8 cm2 Ao V2 VTI: 31.7 cm PAZ(V,D): 2.8 cm2 sev ratio: 0.89 PAZ indexed to BSA (cm^2/m^2): 1.3 AI P1/2t: 784.1 msec AI dec slope: 158.0 cm/sec2 MV E max jhon: 102.0 cm/sec PA V2 max: 102.0 cm/sec MV A max jhon: 129.0 cm/sec PA V2 mean: 70.9 cm/sec MV E/A: 0.79 PA mean P.0 mmHg Med Peak E' Jhon: 4.1 cm/sec PA pr(Accel): 30.0 mmHg E/E' med: 25.1 Lat Peak E' Jhon: 5.5 cm/sec E/E' lat: 18.6 E/e' average: 21.9 MV dec time: 0.37 sec MV P1/2t: 118.4 msec MVA(VTI): 1.7 cm2 MV V2 mean: 88.5 cm/sec MV P1/2t max jhon: 118.0 cm/sec MV mean P.0 mmHg MVA(P1/2t): 1.9 cm2 MV V2 VTI: 51.6 cm SV(LVOT): 88.9 ml AV P1/2t-pr_phl: 783.0 msec AV VR_phl: 0.90 PAZ(VTI)/BSA_phl: 1.3 MV P1/2t-pr_phl: 136.0 msec Reading Physician:05:22 PM
== END ==
PROVIDERS: PCP Student in an Organized Health Care Education/Training Program; Referring Provider Internal Medicine Cardiovascular Disease; Visit Provider Internal Medicine Cardiovascular Disease
DX: I08.0 Rheumatic disorders of both mitral and aortic valves (principal); I77.89 Other specified disorders of arteries and arterioles
CPT/HCPCS: 93306

== ENCOUNTER → 2023-02-03 07:23 | Outpatient (CLI) | payer MEDICARE, OTHER, SELFPAY ==
[2020-11-10 22:43] VITALS: BMI 32.2
[2023-02-03 09:19] LABS: Alanine Aminotransferase 30 IU/L (<50); Albumin 3.7 g/dL (3.5-5.0); Albumin Globulin Ratio 1.5 (1.0-2.8); Alkaline Phosphatase 79 U/L (38-126); Aspartate Aminotransferase 29 IU/L (17-59); BUN Creatinine Ratio 12.1 (6-22); Bilirubin Total 0.8 mg/dL (0.2-1.3); Blood Urea Nitrogen 12 mg/dL (9-20); Calcium 8.9 mg/dL (8.4-10.2); Carbon Dioxide 26 mmol/L (22-32); Chloride 101 mmol/L (98-107); Cholesterol 94 mg/dL (140-199); Estimated Glomerular Filt Rate > 60 mL/min (>60); Globulin 2.5 g/dL (1.7-4.1); Glucose 91 mg/dL (80-110); HDL Cholesterol 60 mg/dL (40-60); HEMOLYSIS < 15 (0-50); LDL Cholesterol Calculated 16 mg/dL (<100); Potassium 4.2 mmol/L (3.4-5.1); Sodium 134 mmol/L (137-145); Total Protein 6.2 g/dL (6.3-8.2); Triglycerides 92 mg/dL (35-150)
== END ==
PROVIDERS: PCP Student in an Organized Health Care Education/Training Program; Referring Provider Internal Medicine Cardiovascular Disease; Visit Provider Internal Medicine Cardiovascular Disease
DX: I10 Essential (primary) hypertension (principal); I44.7 Left bundle-branch block, unspecified
CPT/HCPCS: 36415; 80053; 80061

== ENCOUNTER → 2024-01-20 12:45 | Outpatient (CLI) | payer MEDICARE, OTHER, SELFPAY ==
[2020-11-10 22:43] VITALS: BMI 32.2
--- NOTE | 2024-01-20 12:49 | DI.ECHO.S_ITS ---
[facility]---------+ [facility] +---------+ : : [address] : [place] : : : : [id number] : : : : Phone: [phone]---------+ Echocardiogram Report + + :Name: ELIAN DIAZ Study Date: 01/20/2024 Height: 70 in : :[facility] ReadingLocation: Weight: 220 lb : : Gender: Male BSA: 2.2 m2 : :: 1955 Age: 68 yrs BP: 148/83 mmHg: :Reason For Study: THORACIC AORTIC ECTASIA : :Ordering Physician: : :DISHA GAMBLE Performed By: Eda Gimenez : :Referring: DISHA GAMBLE : + + Interpretation Summary The patient was in normal sinus rhythm during the exam. The patient had a bundle branch block rhythm during the exam. The left ventricle is normal in size. There is moderate proximal septal thickening noted. The left ventricular outflow velocity with valsalva is 3.78 m/s. Mild to moderate dynamic LV outflow tract obstruction. The right ventricle is at the upper limits of normal in size. The right ventricular systolic function is normal. There is reduced mobility of the posterior mitral valve leaflet with severe MAC of posterior mitral annulus. Mild calcification of anterior mitral annulus. Mean gradient across mitral valve about 4.5 mmHg. Previously 4 to 5 mmHg. Overall mild mitral stenosis. Mild MR. No significant change. There is mild aortic regurgitation. Compared to the prior echo study, there has been no change in the severity of aortic regurgitation. The ascending aorta is moderately enlarged. 4.7 cm in diameter. Previously 4.5 cm. Procedure: A two-dimensional transthoracic echocardiogram with color flow and Doppler was performed. The study quality was technically adequate. Comparison is made with the echocardiogram of 01/20/2023. The patient had a bundle branch block rhythm during the exam. The heart rate ranged between 57- 68 bpm during the study. The patient was in normal sinus rhythm during the exam. Left Ventricle: The left ventricle is normal in size. There is moderate proximal septal thickening noted. The left ventricular outflow velocity with valsalva is 3.78 m/s.. The ejection fraction is estimated to be 60-65%. Right Ventricle: The right ventricle is at the upper limits of normal in size. The right ventricular systolic function is normal. Atria: The left atrium is moderately dilated. The left atrium has mildly increased in size since the prior echo exam. Right atrial size is normal. There is no Doppler evidence for an interatrial shunt. Mitral Valve: There is severe mitral annular calcification. The mitral valve leaflets are mildly calcified. There is reduced mobility of the posterior mitral valve leaflet with severe MAC of posterior mitral annulus. Mild calcification of anterior mitral annulus. Mean gradient across mitral valve about 4.5 mmHg. Previously 4 to 5 mmHg. Overall mild mitral stenosis. Mild MR. No significant change. The mitral valve mean gradient is 4.5 mmHg. There is mild mitral regurgitation. Aortic Valve: The aortic valve is trileaflet. The aortic valve opens well. There is mild aortic valve sclerosis. There is no aortic valve stenosis. There is mild aortic regurgitation. Compared to the prior echo study, there has been no change in the severity of aortic regurgitation. Tricuspid Valve: The tricuspid valve is normal in structure and function. There is trace tricuspid regurgitation. Pulmonary artery pressures cannot be estimated because of the lack of a measurable TR jet velocity. Pulmonic Valve: The pulmonic valve leaflets are thin and pliable; valve motion is normal. There is no pulmonic valvular regurgitation. Great Vessels: The aortic root is mildly dilated. There is aortic root sclerosis/calcification. The ascending aorta is moderately enlarged. The aortic arch could not be visualized. The IVC is dilated (diameter is greater than 2.1 cm) yet it collapses greater than 50% with a sniff. This suggests a right atrial pressure of 8 mm Hg. Pericardium/ Pleura There is no pericardial effusion. There is no pleural effusion. MMode/2D Measurements & Calculations LVIDd: 5.1 cm LVOT diam: 2.1 cm LVIDs: 3.1 cm Ao root diam: 4.4 cm FS: 38.4 % asc Aorta Diam: 4.7 cm IVSd: 1.4 cm Ao Arch Diam (Prox Trans): 3.6 cm LVPWd: 1.0 cm LV rodriguez. diameter/BSA (cm/m^2): 2.3 LV sys. diameter/BSA (cm/m^2): 1.4 LA A2 area: 27.6 cm2 RA long axis: 6.1 cm LA A4 area: 23.5 cm2 RA area: 20.6 cm2 LA length (vol): 5.7 cm RA vol: 59.6 ml LA vol: 97.0 ml RA : 27.4 ml/m2 LA vol index: 44.6 ml/m2 IVC diam: 2.1 cm RVD1 (basal): 4.1 cm RVD2 (mid): 3.5 cm TAPSE: 1.9 cm Doppler Measurements & Calculations Ao V2 max: 164.9 cm/sec LVOT Max Jhon: 165.6 cm/sec Ao V2 mean: 123.4 cm/sec LV V1 max P.0 mmHg Ao max P.9 mmHg LV V1 VTI: 39.9 cm Ao mean P.6 mmHg PAZ(I,D): 3.5 cm2 Ao V2 VTI: 41.6 cm PAZ(V,D): 3.6 cm2 sev ratio: 0.96 PAZ indexed to BSA (cm^2/m^2): 1.6 MV E max jhon: 109.5 cm/sec PA V2 max: 87.4 cm/sec MV A max jhon: 130.4 cm/sec PA V2 mean: 63.3 cm/sec MV E/A: 0.84 PA mean P.7 mmHg Med Peak E' Jhon: 3.4 cm/sec PA pr(Accel): 43.0 mmHg E/E' med: 31.9 Lat Peak E' Jhon: 7.3 cm/sec E/E' lat: 14.9 E/e' average: 23.4 MV dec time: 0.32 sec MVA(VTI): 2.5 cm2 MV V2 mean: 94.9 cm/sec SV(LVOT): 144.7 ml MV mean P.5 mmHg MV V2 VTI: 57.7 cm Reading Physician:05:05 PM
== END ==
PROVIDERS: PCP Family Medicine; Referring Provider Internal Medicine Cardiovascular Disease; Visit Provider Internal Medicine Cardiovascular Disease
DX: I77.810 Thoracic aortic ectasia (principal); I08.0 Rheumatic disorders of both mitral and aortic valves; I77.89 Other specified disorders of arteries and arterioles
CPT/HCPCS: 93306

== ENCOUNTER → 2024-02-01 09:38 | Outpatient (CLI) | payer MEDICARE, OTHER, SELFPAY ==
[2020-11-10 22:43] VITALS: BMI 32.2
[2024-02-01 10:52] LABS: Alanine Aminotransferase 17 IU/L (<50); Albumin 4.3 g/dL (3.5-5.0); Albumin Globulin Ratio 1.4 (1.0-2.8); Alkaline Phosphatase 65 U/L (38-126); Aspartate Aminotransferase 23 IU/L (17-59); BUN Creatinine Ratio 14.4 (6-22); Blood Urea Nitrogen 18 mg/dL (9-20); Calcium 9.8 mg/dL (8.4-10.2); Carbon Dioxide 25 mmol/L (22-32); Chloride 105 mmol/L (98-107); Cholesterol 172 mg/dL (140-199); Estimated Glomerular Filt Rate > 60 mL/min (>60); Glucose 104 mg/dL (80-110); HDL Cholesterol 55 mg/dL (40-60); HEMOLYSIS < 15 (0-50); LDL Cholesterol Calculated 73 mg/dL (<100); Potassium 4.1 mmol/L (3.4-5.1); Sodium 137 mmol/L (137-145); Total Protein 7.3 g/dL (6.3-8.2); Triglycerides 222 mg/dL (35-150)
== END ==
PROVIDERS: PCP Family Medicine; Referring Provider Internal Medicine Cardiovascular Disease; Visit Provider Internal Medicine Cardiovascular Disease
DX: E78.5 Hyperlipidemia, unspecified (principal); I10 Essential (primary) hypertension
CPT/HCPCS: 36415; 80053; 80061

== ENCOUNTER → 2024-07-19 09:41 | Outpatient (CLI) | payer MEDICARE, OTHER, SELFPAY ==
[2020-11-10 22:43] VITALS: BMI 32.2
[2024-07-19 10:43] LABS: Cholesterol 166 mg/dL (140-199); HDL Cholesterol 63 mg/dL (40-60); LDL Cholesterol Calculated 49 mg/dL (<100); Triglycerides 269 mg/dL (35-150)
== END ==
PROVIDERS: PCP Family Medicine; Referring Provider Nurse Practitioner; Visit Provider Nurse Practitioner
DX: E78.5 Hyperlipidemia, unspecified (principal)
CPT/HCPCS: 36415; 80061

== ENCOUNTER → 2024-08-09 09:05 | Outpatient (CLI) | payer MEDICARE, OTHER, SELFPAY ==
[2020-11-10 22:43] VITALS: BMI 32.2
== END ==
PROVIDERS: PCP Family Medicine; Referring Provider Nurse Practitioner; Visit Provider Nurse Practitioner
DX: I21.A9 Other myocardial infarction type (principal); E78.2 Mixed hyperlipidemia
CPT/HCPCS: 36415; 83036

== ENCOUNTER → 2025-01-29 10:12 | Outpatient (CLI) | payer MEDICARE, OTHER, SELFPAY ==
[2020-11-10 22:43] VITALS: BMI 32.2
[2025-01-29 14:42] LABS: Alanine Aminotransferase 28 IU/L (<50); Albumin 4.4 g/dL (3.5-5.0); Alkaline Phosphatase 66 U/L (38-126); Aspartate Aminotransferase 31 IU/L (17-59); BUN Creatinine Ratio 15.6 (6-22); Bilirubin Total 0.8 mg/dL (0.2-1.3); Blood Urea Nitrogen 20 mg/dL (9-20); Carbon Dioxide 27 mmol/L (22-32); Chloride 104 mmol/L (98-107); Cholesterol 127 mg/dL (140-199); Estimated Glomerular Filt Rate > 60 mL/min (>60); Globulin 2.2 g/dL (1.7-4.1); Glucose 88 mg/dL (80-110); HDL Cholesterol 54 mg/dL (40-60); HEMOLYSIS < 15 (0-50); LDL Cholesterol Calculated 40 mg/dL (<100); Potassium 4.3 mmol/L (3.4-5.1); Sodium 138 mmol/L (137-145); Total Protein 6.6 g/dL (6.3-8.2); Triglycerides 166 mg/dL (35-150)
--- NOTE | 2025-01-29 18:13 | DI.NM.S_ITS ---
DATE OF SERVICE: 01/29/2025 NUCLEAR CARDIOLOGY MYOCARDIAL PERFUSION STUDY PROCEDURE PERFORMED: Pharmacologic vasodilator stress and rest myocardial perfusion study with gating to assess ejection fraction and regional wall motion. ORDERING PROVIDER: JOVANNY Boo. INDICATIONS: The patient is a 69-year-old male with a history of previous myocardial infarction and RCA stenting, chronic LBBB, and paroxysmal atrial fibrillation requiring cardioversion. CARDIAC STRESS: Per protocol, 0.4 mg of regadenoson was infused with a normal hemodynamic response. The patient denied any chest discomfort or other anginal symptoms. The patient's resting ECG showed sinus rhythm with a LBBB with associated ST-segment abnormalities. There were occasional PACs and isolated PVCs but no complex ectopy. Per protocol, 26.1 millicuries of technetium-99m Myoview was injected and he was imaged 15 minutes later using a gated SPECT acquisition protocol. Earlier in the day while at rest, he had been injected with 9.8 millicuries of technetium-99m Myoview and was imaged 10 minutes later, again using a gated SPECT acquisition protocol. FINDINGS: 1. Raw data. There is fair myocardial tracer uptake. The lung/heart ratio is normal at 0.28 with a normal TID ratio of 1.28. 2. Quantitated gated SPECT: Post-stress ejection fraction is 68% without any focal wall motion abnormality and specifically the distal inferior wall and inferoapex appears to have normal contractility. The end-diastolic volume is moderately increased at 160 mL. Resting ejection fraction was unable to be obtained. 3. Myocardial perfusion imaging: Post-stress supine images show a mild perfusion defect throughout the inferior wall, becoming more prominent in the distal inferior wall, apex, and septum in a pattern that would be consistent with diaphragmatic attenuation, supported by its near-complete resolution on the prone images except for a small persistent defect in the distal inferior wall and inferoapex. The resting images show an identical perfusion pattern to that of the post-stress supine images without any clear areas of improvement. IMPRESSION: 1. Probable abnormal myocardial perfusion, but low risk, study. 2. Fixed inferior and inferoapical perfusion defect that predominantly resolves on the prone imaging, suggesting the majority of this reflects diaphragmatic attenuation, but with a small residual inferior and inferoapical defect on prone imaging, suggesting a small area of myocardial infarction but without any reversibility to suggest myocardial ischemia. 3. Moderately increased left ventricular volumes with normal systolic function and no focal wall motion abnormality. 4. No angina with pharmacologic vasodilator stress. The presence of left bundle-branch block precludes ST-segment analysis. There are rare isolated PACs and PVCs, but no complex ectopy. 5. Compared to the previous myocardial perfusion imaging study of 08/21/2019, a near identical perfusion pattern iswas seen without any significant change from the current exam. The previous end-diastolic volume was 137 mL suggesting possible slight progression but the previous ejection fraction was very similar at 77%. Antelmo Watkins - ARTI/la/SILVERIOB doc#: [id number]/job#: [id number] dd: 01/29/2025 17:15:00 dt: 01/29/2025 17:23:00 DICTATING MD/COPIES TO: Abdiel Flowers MD; Alison Kim MD; Yuliana Marx M.D. COPIES MNE: MACARIO; ;
== END ==
PROVIDERS: PCP Family Medicine; Referring Provider Nurse Practitioner; Visit Provider Nurse Practitioner
DX: I25.118 Atherosclerotic heart disease of native coronary artery with other forms of angina pectoris (principal); I77.810 Thoracic aortic ectasia; I25.2 Old myocardial infarction; E78.5 Hyperlipidemia, unspecified; I10 Essential (primary) hypertension; I44.7 Left bundle-branch block, unspecified; I48.0 Paroxysmal atrial fibrillation; Z95.5 Presence of coronary angioplasty implant and graft
CPT/HCPCS: 36415; 78452; 80053; 80061; 93017; A9502; J2785

== ENCOUNTER → 2025-01-31 09:12 | Outpatient (CLI) | payer MEDICARE, OTHER, SELFPAY ==
[2020-11-10 22:43] VITALS: BMI 32.2
--- NOTE | 2025-01-31 09:14 | DI.ECHO.S_ITS ---
[facility] +---------+ Hospital : : [address] : : [place] : : [id number] : : Phone: [phone] Echocardiogram Report + + :Name: ELIAN DIAZ Study Date: 01/31/2025 Height: 70.5 in: :[facility] ReadingLocation: Weight: 230 lb : : Gender: Male BSA: 2.2 m2 : :: 1955 Age: 69 yrs BP: 142/87 mmHg: :Reason For Study: ASCENDING AORTA DILATION : :Ordering Physician: GLENNY, : :KIRILL Olson Performed By: Eda Gimenez : :Referring: KIRILL MURRIETA : + + Interpretation Summary The left ventricle is normal in size. There is moderate proximal septal thickening noted. Mild to moderate dynamic LV outflow tract obstruction without any significant change. LVEF 55 to 60%. No significant change.Diastolic parameters suggest probable elevated filling pressures. The right ventricle is at the upper limits of normal in size. The right ventricular systolic function is normal. There is reduced mobility of the posterior mitral valve leaflet with severe MAC of posterior mitral annulus. Mild calcification of anterior mitral annulus. Mean gradient across mitral valve about 4.3 mmHg. Previously 4 to 5 mmHg. Overall mild mitral stenosis. No significant change. Mild to moderate MR. Previously mild MR. There is mild to moderate aortic regurgitation. Previously mild MR. The IVC is of normal diameter and collapses greater than 50% with a sniff. This suggests a low right atrial pressure of 3 mm Hg. The ascending aorta is moderately enlarged. 4.6 cm in diameter. Previously 4.7 cm. Procedure: A two-dimensional transthoracic echocardiogram with color flow and Doppler was performed. The study quality was technically adequate. Comparison is made with the echocardiogram of 01/20/2024. The patient had occasional PVCs during the exam. The patient was in sinus bradycardia with heart rates between 54-65 bpm during the exam. The patient had a bundle branch block rhythm during the exam. Left Ventricle: There is moderate proximal septal thickening noted. The left ventricle is normal in size. The echo findings are consistent with moderate dynamic left ventricular outflow tract obstruction. There is no thrombus. The ejection fraction is estimated to be 55-60%. There are no focal wall motion abnormalities. MV E/A: 0.99 Med Peak E' Jhon: 3.0 cm/sec E/E' med: 41.7. Diastolic parameters suggest probable elevated filling pressures. Right Ventricle: The right ventricle is at the upper limits of normal in size. The right ventricular systolic function is normal. Atria: The left atrium is severely dilated. The left atrium has mildly increased in size since the prior echo exam. Right atrial size is normal. There is no Doppler evidence for an interatrial shunt. Mitral Valve: There is reduced mobility of the posterior mitral valve leaflet with severe MAC of posterior mitral annulus. Mild calcification of anterior mitral annulus. Mean gradient across mitral valve about 4.3 mmHg. Previously 4 to 5 mmHg. Overall mild mitral stenosis. Mild to moderate MR. No significant change. The mitral valve mean gradient is 4.3 mmHg. There is mild mitral stenosis. There is mild to moderate mitral regurgitation. Aortic Valve: The aortic valve is trileaflet. There is mild aortic valve sclerosis. The aortic valve is slightly calcified. There is no aortic valve stenosis. There is mild to moderate aortic regurgitation. Tricuspid Valve: The tricuspid valve leaflets are thin and pliable. There is trace tricuspid regurgitation. Pulmonary artery pressures cannot be estimated because of the lack of a measurable TR jet velocity. Pulmonic Valve: The pulmonic valve leaflets are thin and pliable; valve motion is normal. There is no pulmonic valvular regurgitation. Great Vessels: The aortic root is mildly dilated. There is aortic root sclerosis/calcification. The ascending aorta is moderately enlarged. The IVC is of normal diameter and collapses greater than 50% with a sniff. This suggests a low right atrial pressure of 3 mm Hg. Pericardium/ Pleura There is no pericardial effusion. There is no pleural effusion. MMode/2D Measurements & Calculations LVIDd: 5.2 cm LVOT diam: 2.2 cm LVIDs: 3.6 cm Ao root diam: 4.2 cm FS: 30.7 % asc Aorta Diam: 4.6 cm IVSd: 1.4 cm Ao Arch Diam (Prox Trans): 3.6 cm LVPWd: 1.0 cm LV rodriguez. diameter/BSA (cm/m^2): 2.4 LV sys. diameter/BSA (cm/m^2): 1.6 LA A2 area: 32.1 cm2 RA long axis: 5.5 cm LA A4 area: 25.9 cm2 RA area: 17.3 cm2 LA length (vol): 6.6 cm RA vol: 46.3 ml LA vol: 106.8 ml RA : 20.8 ml/m2 LA vol index: 47.9 ml/m2 IVC diam: 1.7 cm TAPSE: 2.1 cm Doppler Measurements & Calculations Ao V2 max: 160.3 cm/sec LVOT Max Jhon: 154.0 cm/sec Ao V2 mean: 115.7 cm/sec LV V1 max P.5 mmHg Ao max P.3 mmHg LV V1 VTI: 39.5 cm Ao mean P.8 mmHg PAZ(I,D): 3.7 cm2 Ao V2 VTI: 38.6 cm PAZ(V,D): 3.5 cm2 sev ratio: 1.0 PAZ indexed to BSA (cm^2/m^2): 1.7 AI P1/2t: 879.5 msec AI dec slope: 151.9 cm/sec2 MV E max jhon: 126.0 cm/sec PA V2 max: 100.1 cm/sec MV A max jhon: 127.8 cm/sec PA V2 mean: 69.7 cm/sec MV E/A: 0.99 PA mean P.1 mmHg Med Peak E' Jhon: 3.0 cm/sec PA pr(Accel): 19.9 mmHg E/E' med: 41.7 Lat Peak E' Jhon: 3.7 cm/sec E/E' lat: 33.8 E/e' average: 37.8 MV dec time: 0.26 sec MVA(VTI): 2.3 cm2 MV V2 mean: 97.4 cm/sec SV(LVOT): 144.6 ml MV mean P.3 mmHg MV V2 VTI: 62.3 cm Reading Physician:04:50 PM
== END ==
PROVIDERS: PCP Family Medicine; Referring Provider Nurse Practitioner; Visit Provider Nurse Practitioner
DX: I08.0 Rheumatic disorders of both mitral and aortic valves; I25.118 Atherosclerotic heart disease of native coronary artery with other forms of angina pectoris; I77.89 Other specified disorders of arteries and arterioles; R00.1 Bradycardia, unspecified; I77.810 Thoracic aortic ectasia; I70.0 Atherosclerosis of aorta
CPT/HCPCS: 93306

== ENCOUNTER → 2025-08-16 12:36 | Outpatient (CLI) | payer MEDICARE, OTHER, SELFPAY ==
[2025-07-12 03:25] VITALS: PULSE 96; RESP 25; O2SAT 96
[2025-07-12 08:09] VITALS: BMI 32.4
--- NOTE | 2025-08-22 17:33 | DI.NM.S_ITS ---
DATE OF SERVICE: 08/16/2025 PHARMACOLOGICAL PERFUSION STUDY INDICATIONS: Underlying multivessel coronary artery disease, RCA stent in 2018, paroxysmal AFib, hypertension, and hyperlipidemia. RADIOPHARMACEUTICAL: 25.1 millicurie technetium-99m Myoview IV was injected at stress and 26 millicurie technetium-99m Myoview IV was injected at rest. CARDIAC STRESS: The patient underwent IV Lexiscan study under the supervision of an attending staff. The patient remained hemodynamically stable. Baseline rhythm sinus with left bundle branch block. Baseline blood pressure 121/68. During stress, no new convincing ischemic changes or new arrhythmias seen. No chest pain. Minimal dyspnea. RAW DATA: There is increased subdiaphragmatic activity. The patient's weight is 230 pounds. Gated studies stress LV ejection fraction 66% without any significant wall motion abnormalities. Resting end- diastolic volume 147 mL. TID ratio 1.18, which is within normal limits. Lung/heart ratio 0.39, which is within normal limits. MYOCARDIAL PERFUSION SCAN: Stress supine, resting supine, and stress prone images were compared to each other. Stress supine and resting supine images revealed large size, severely decreased perfusion of inferior wall extending into the inferior apex as well as inferior septum which got significantly improved during stress prone images; however, the patient remained have small size mild to moderately decreased perfusion of distal inferior wall and inferior apex without any significant reversibility. CONCLUSION: This is an abnormal myocardial perfusion study consistent with small size infarction of inferior apex and distal inferior wall with evidence of diaphragmatic tissue attenuation artifact as well as stated above. Preserved LV function without any significant wall motion abnormalities. Chronic underlying left bundle-branch block. The patient had a perfusion study in January,, at that time, also he had similar findings. Overall, low-risk myocardial perfusion scan. Antelmo Watkins - BONNIE/la/MARILU doc#: [id number]/job#: [id number] dd: 08/22/2025 17:15:00 dt: 08/22/2025 17:26:00 DICTATING MD/COPIES TO: Alison Kim MD COPIES MNE: TABITHA;
== END ==
LOC: NUCM 12:38
PROVIDERS: PCP Family Medicine; Referring Provider Family Medicine; Visit Provider Internal Medicine Cardiovascular Disease
DX: I44.7 Left bundle-branch block, unspecified (principal); R07.89 Other chest pain; R94.39 Abnormal result of other cardiovascular function study; I48.0 Paroxysmal atrial fibrillation; I25.10 Atherosclerotic heart disease of native coronary artery without angina pectoris; I10 Essential (primary) hypertension; E78.5 Hyperlipidemia, unspecified; Z95.5 Presence of coronary angioplasty implant and graft
CPT/HCPCS: 78452; 93017; A9502; J2785

== ENCOUNTER → 2025-08-30 08:05 | Outpatient (CLI) | payer MEDICARE, OTHER, SELFPAY ==
[2025-07-12 03:25] VITALS: PULSE 96; RESP 25; O2SAT 96
[2025-07-12 08:09] VITALS: BMI 32.4
[2025-08-30 09:39] LABS: Alanine Aminotransferase 31 IU/L (<50); Albumin 4.2 g/dL (3.5-5.0); Albumin Globulin Ratio 1.8 (1.0-2.8); Alkaline Phosphatase 75 U/L (38-126); Blood Urea Nitrogen 26 mg/dL (9-20); Calcium 9.0 mg/dL (8.4-10.2); Carbon Dioxide 22 mmol/L (22-32); Chloride 104 mmol/L (98-107); Cholesterol 98 mg/dL (140-199); Estimated Glomerular Filt Rate 49 mL/min (>60); Globulin 2.3 g/dL (1.7-4.1); Glucose 95 mg/dL (70-99); HDL Cholesterol 49 mg/dL (40-60); HEMOLYSIS < 15 (0-50); Potassium 4.5 mmol/L (3.4-5.1); Sodium 136 mmol/L (137-145); Total Protein 6.5 g/dL (6.3-8.2); Triglycerides 128 mg/dL (35-150)
[2025-08-30 10:11] LABS: Thyroid Stimulating Hormone 3.77 uIU/mL (0.47-4.68)
== END ==
PROVIDERS: PCP Family Medicine; Referring Provider Internal Medicine Cardiovascular Disease; Visit Provider Internal Medicine Cardiovascular Disease
DX: E78.5 Hyperlipidemia, unspecified (principal); Z79.899 Other long term (current) drug therapy
CPT/HCPCS: 36415; 80053; 80061; 84443